=== PATIENT | female | born 1970 | race Caucasian/White ===

== ENCOUNTER → 2018-03-01 | Outpatient (CLI) | payer OTHER ==
[~2018-03-01] MED LIST: ASPI-999 PO; BARIUM SUSPENSION 105% (LIQUID POLIBAR PLUS) 240 ML/DOSE PO ONE; BARIUM SUSPENSION 60% (LIQUID EZ PAQUE) 240 ML DOSE PO ONE; CHOL200025 PO; METO-387 PO; UBID100C44 PO; [UNRECOGNIZED DRUG - OTHER] TOP
--- NOTE | 2018-03-01 10:08 | Diagnostic Imaging Report ---
INDICATION: Preop for gastric surgery. FINDINGS: The patient ingested effervescent crystals as well as thin and thick barium and imaging of the esophagus, stomach and small bowel was performed. One minute and 5 seconds of fluoroscopy time was utilized. Preliminary radiograph is unremarkable. Esophagus has a smooth contour. No mass or stricture is seen. No hiatal hernia or gastroesophageal reflux was demonstrated. Stomach is normal in appearance. There is prompt emptying into small bowel. The duodenal bulb is without deformity. IMPRESSION: Unremarkable upper GI study. Dictated by: Dictated on workstation # [id number]
== END ==
LOC: RAD 08:58
PROVIDERS: ATTEND Surgery
DX: Z01.818 Encounter for other preprocedural examination (principal); K21.9 Gastro-esophageal reflux disease without esophagitis
CPT/HCPCS: 74241

== ENCOUNTER 2018-05-03 09:40 | Inpatient (IN) | payer OTHER ==
[~2018-05-03] VITALS: Ht 167.6 cm; Wt 127.9 kg
[~2018-05-03 09:40] MED LIST changes: +ASCO10006 PO; -BARIUM SUSPENSION 105% (LIQUID POLIBAR PLUS) 240 ML/DOSE PO ONE; -BARIUM SUSPENSION 60% (LIQUID EZ PAQUE) 240 ML DOSE PO ONE; +CA C1TAB80 PO; +LEVO88TA54 PO; +PEDI1TAB46 PO; +VITA600C3 PO
[2018-05-03 12:13] VITALS: BP 138/92
[2018-05-03] MEDS: LACTATED RINGERS 1,000 ML IV PRN ×3 (12:20→16:43)
[2018-05-03] MEDS ORDERED: ceFAZolin 1,000 MG (ANCEF) VIAL ONE (12:28)
[2018-05-03] MEDS ORDERED: NS (IVPB) 50 ML ONE (12:28)
[2018-05-03] MEDS ORDERED: ceFAZolin INJECTION 1,000 MG in NS (IVPB) 50 ML IV ONE (12:30)
--- NOTE | 2018-05-03 12:39 | Progress Note-Pre Operative ---
Pre-Operative Progress Note H&P Reviewed The H&P was reviewed, patient examined and no changes noted. Date Seen by Provider: May 03, 2018 Time Seen by Provider: 12:00 Date H&P Reviewed: May 03, 2018 Time H&P Reviewed: 12:00 Pre-Operative Diagnosis: morbid obesity, HTN DEWAYNE SERRANO MD May 03, 2018 12:39 pm
[2018-05-03] MEDS ORDERED: BUP/EPI 0.5% 1:200,000 (SENSORCAINE) 30 ML VIAL ONE (13:27)
[2018-05-03] MEDS ORDERED: ceFAZolin 2 GM IV Premixed 50 ML IV ONE (13:30)
[2018-05-03] MEDS ORDERED: fentaNYL INJECTION 250 MCG/5 ML AMP ONE (13:33)
[2018-05-03] MEDS ORDERED: MIDAZOLAM 2 MG/2 ML (VERSED) VIAL ONE (13:33)
[2018-05-03] MEDS ORDERED: proPOfol 200 MG/20 ML (DIPRIVAN) VIAL IV ONE (15:16)
[2018-05-03] MEDS ORDERED: ONDANSETRON 4 MG/2 ML (SDV) Z0FRAN ONE ×2 (15:16→15:30)
[2018-05-03] MEDS ORDERED: DEXAMETHASONE 10 MG/ML (DECADRON) 1 ML VIAL ONE (15:16)
[2018-05-03] MEDS ORDERED: LIDOCAINE PF 2% 5 ML (XYLOCAINE) VIAL ONE (15:16)
[2018-05-03] MEDS ORDERED: SEVOFLURANE (ULTANE) 15 ML INHAL SOLN ONE (15:16)
[2018-05-03] MEDS ORDERED: ROCURONIUM 10 MG/ML 5 ML SYRINGE IV ONE (15:16)
[2018-05-03] MEDS ORDERED: morphine INJ 10 MG/ML 1ML (SYR OR VIAL) ONE (15:30)
[2018-05-03] MEDS ORDERED: MEPERIDINE (DEMEROL) INJ 50 MG/ML ONE (15:30)
[2018-05-03] MEDS ORDERED: HYDROmorphone 1 MG/ML (DILAUDID) 1 ML SYRINGE ONE (15:31)
[2018-05-03] MEDS ORDERED: NS IV 1000 ML 1,000 ML IV SCH (16:03)
--- NOTE | 2018-05-03 16:03 | Progress Note-Post Operative ---
Post-Operative Progess Note Surgeon (s)/Medical Or Surgical Instrument Maker (s) Surgeon DEWAYNE SERRANO MD Medical Or Surgical Instrument Maker: yasmin hill THERMOSPRAY OPERATOR Pre-Operative Diagnosis morbid obesity, HTN Post-Operative Diagnosis same Procedure & Operative Findings Date of Procedure 05/03/18 Procedure Performed/Findings laparoscopic gastric sleeve gastrectomy Anesthesia Type GET Estimated Blood Loss Estimated blood loss (mL): minimal Specimens/Packing Specimens Removed stomach DEWAYNE SERRANO MD May 03, 2018 4:03 pm
[2018-05-03] MEDS ORDERED: diphenhydrAMINE 50 MG/ML INJ (BENADRYL) IV PRN (16:15)
[2018-05-03] MEDS ORDERED: ONDANSETRON 4 MG/2 ML (SDV) Z0FRAN IV PRN (16:15)
[2018-05-03] MEDS ORDERED: diphenhydrAMINE 50 MG/ML INJ (BENADRYL) IVP PRN (16:15)
[2018-05-03] MEDS ORDERED: RT-ALBUTEROL SULF 2.5 MG/3 ML PRE-MIX VIAL INH SCH (16:15)
[2018-05-03] MEDS ORDERED: METOCLOPRAMIDE INJ 10 MG/2 ML (REGLAN) IV PRN (16:15)
[2018-05-03] MEDS ORDERED: fentaNYL INJECTION 1,000 MCG in NS (IVPB) 80 ML IV SCH (16:15)
[2018-05-03] MEDS ORDERED: oxyCODONE 20 MG/1 ML ORAL CONC (RoxiCODONE) CHARGE PER 1 ML PO PRN (16:15)
[2018-05-03] MEDS ORDERED: NALOXONE 0.4 MG/ML 1 ML (NARCAN) VIAL IV PRN (16:15)
[2018-05-03] MEDS ORDERED: PANT40TA2 PO (16:19)
[2018-05-03] MEDS ORDERED: HYDR-34 PO (16:19)
[2018-05-03] MEDS ORDERED: ONDN4T PO (16:19)
--- NOTE | 2018-05-03 16:21 | Discharge Inst-Surgical ---
D/C Lap Instructions-ZACH New, Converted, or Re-Newed RX: RX on Chart Follow Up Appt in 2 weeks Activity as tolerated No driving for 24 hours No driving while on pain medications Incentive Spirometry use every 2 hours while awake phase 1 clear liquid diet next 2 weeks. Symptoms to Report: Fever over 101 degree F, Nausea/Vomiting Infection Signs and Symptoms to report: Increased redness, Foul odor of wound, Increased drainage Bathing instructions: May shower Operative Area Clean/Dry; Keep incision clean/dry If any problems/questions: Contact your physician or go to Emergency Room DEWAYNE SERRANO MD May 03, 2018 4:21 pm
[2018-05-03] MEDS ORDERED: HYDROmorphone 1 MG/ML (DILAUDID) 1 ML SYRINGE IV PRN (16:30)
[2018-05-03] MEDS ORDERED: MEPERIDINE (DEMEROL) INJ 50 MG/ML IVP PRN (16:30)
[2018-05-03] MEDS ORDERED: KETOROLAC 30 MG/ML VIAL IVP ONE (16:30)
[2018-05-03] MEDS: morphine INJ 10 MG/ML 1ML (SYR OR VIAL) IVP PRN ×3 (16:38→16:49)
[2018-05-03 17:25] VITALS: BP 131/63
[2018-05-03] MEDS ORDERED: 1/2 NS W/KCL 20 MEQ/L 1,000 ML IV ONE (17:33)
[2018-05-03] MEDS ORDERED: metroNIDAZOLE 500MG/100ML IVPB 100 ML ONE (17:48)
[2018-05-03] MEDS: metroNIDAZOLE 500MG/100ML IVPB 100 ML IV SCH ×2 (17:49→23:26)
[2018-05-03] MEDS: 1/2 NS W/KCL 20 MEQ/L 1,000 ML IV SCH ×2 (17:57→22:24)
[2018-05-03] MEDS: METOCLOPRAMIDE INJ 10 MG/2 ML (REGLAN) IVP SCH ×2 (17:58→23:26)
[2018-05-03] MEDS: ONDANSETRON 4 MG/2 ML (SDV) Z0FRAN IVP SCH ×2 (17:58→23:26)
[2018-05-03 20:21] VITALS: BP 110/82
[2018-05-03] MEDS: ENOXAPARIN 40 MG/0.4 ML (LOVENOX) SYR SC SCH (21:12)
[2018-05-03] MEDS: ceFAZolin 2 GM IV Premixed 50 ML IV SCH (21:12)
--- NOTE | 2018-05-03 22:57 | OPERATIVE REPORT ---
DATE OF SERVICE: 05/03/2018 ATTENDING PRIMARY CARE PHYSICIAN: Dr. Jordi Rowell. PREOPERATIVE DIAGNOSES: Morbid obesity, liver steatosis, anxiety, depression. POSTOPERATIVE DIAGNOSES: Morbid obesity, liver steatosis, anxiety, depression. PROCEDURE: Laparoscopic gastric sleeve resection. SURGEON: Dewayne Serrano MD. PARKS AND RECREATION MANAGER: Heath Mccann APRN. ANESTHESIA: General endotracheal. ESTIMATED BLOOD LOSS: Minimal. FINDINGS: Mild hepatomegaly, surgically absent gallbladder. No hiatal hernia. DISPOSITION: The patient tolerated the procedure well. The patient is a 47-year-old female who is in our surgical weight loss program for the laparoscopic gastric sleeve resection and meets the medical criteria for bariatric surgery. She began to gain the majority of her adult weight in her 20s after having children. She reports that she has tried a number of diet and exercise attempts as well as medications with no success. She has tried diet programs including walking, treadmill, aerobic exercise classes with no success. She has also tried diet programs including SlimFast, Weight Watchers, low calorie low carbohydrate and ketogenic diet again with no success. She did proceed with a trial of beta hCG and reports that this did not work as well. Her medical comorbidities related to her obesity include liver steatosis diagnosed by ultrasound and elevated liver function enzymes as well as anxiety and depression. The patient was brought to the operating room, laid supine on the table. After adequate IV pain and sedating medications and general endotracheal intubation, the abdomen was prepped and draped in standard surgical fashion. A 0.5% Marcaine with epinephrine was then used to anesthetize the overlying skin in the left upper abdominal quadrant. A small transverse skin incision made using a 15 blade. An 0 silk suture was applied to the medial aspect of the incision for retraction and a Veress needle inserted with low opening pressure of 0 mmHg and the abdomen was then insufflated to 15 mmHg pressure. The Veress needle removed and a 5 mm Xcel trocar placed followed by a 5 mm 45 degree angle laparoscope visualizing the peritoneal cavity. A 4-quadrant abdominal exploration was performed. There was a mild hepatomegaly. There was a surgically absent gallbladder and no hiatal hernia identified. Under direct visualization, we then proceeded to place a midabdominal left of midline 10 mm port after the skin and peritoneal lining were anesthetized using 0.5% Marcaine with epinephrine and a transverse skin incision made using a 15 blade. In a similar manner, a midabdominal right of midline 15 mm port was placed followed by a right upper abdominal quadrant 5 mm port. The epigastric region was then anesthetized and a small transverse skin incision made using 11-blade. A tract was then created through the abdominal wall layers using a trocar to a 5 mm port. Through this opening a medium sized Alberto liver retractor was placed and the left lobe of the liver retracted anteriorly and superiorly. The patient was then placed in steep reverse Trendelenburg position. We then measured the distance from the pylorus along the greater curvature of the stomach 6 cm and marked this with a marking pen. The gastrocolic ligament was then opened entering the lesser sac using the Sonicision. We then proceeded with a caudal dissection until we were approximately 2 cm below our marking. We then proceeded cephalad taking down the short gastric vessels. The connective tissue fibers of the angle of His were then taken down as well as the posterior stomach behind this region using a Sonicision as well as blunt dissection. Good hemostasis was observed. A 42-[place] bougie was then placed under direct visualization and guided into the pylorus. Using this as our guide, we then proceeded with our gastric sleeve resection starting 2 cm below our marking. We proceeded with the gastric resection using a PARAS 45 mm polyglycolic acid black load. We then proceeded with 2 60 mm black loads followed by 2 60 mm purple loads to complete our gastric sleeve resection with visualization of good hemostasis. The staple line corners were then clipped with 5 mm clips. Tisseel fibrin glue was placed on the staple line and omentum placed back over the staple line. The liver retractor and bougie were then removed. The fascia to the 10 and 15 mm port were then closed under direct visualization using a Kalin-Phill device and an 0 Vicryl suture. The abdomen was desufflated and remaining ports removed. All skin incisions were closed using 4-0 Monocryl running subcuticular sutures. Wounds were then cleaned and covered with Dermabond. The patient tolerated the procedure well. We will admit her to the floor and proceed with DVT prophylaxis with calf SCDs, early ambulation as well as Lovenox injections. We will also proceed with a SPORTS EQUIPMENT REPAIRER for pain control. Tomorrow morning, we will start a phase I clear liquid diet. Once she is tolerating clears, has good pain control with oral pain medications, ambulating well, we will discharge her home. She will be instructed to do a phase I clear liquid diet for the next 2 weeks. Job ID: [id number] DocumentID: [id number] Dictated Date: 05/03/2018 16:31:36 Cross Tie Cutter Date: 05/03/2018 22:56:24 Dictated By: DEWAYNE SERRANO MD MTDD
[2018-05-04 00:35] VITALS: BP 139/74
[2018-05-04] MEDS ORDERED: RT-ALBUTEROL SULF 2.5 MG/3 ML PRE-MIX VIAL ONE ×2 (01:58→06:43)
[2018-05-04] MEDS: 1/2 NS W/KCL 20 MEQ/L 1,000 ML IV SCH (02:43)
[2018-05-04 04:00] VITALS: BP 134/76
[2018-05-04 06:10] LABS: HEMOGLOBIN 13.8 G/DL (11.5-16.0); RED BLOOD COUNT 4.88 10^6/uL (4.35-5.85); RED CELL DISTRIBUTION WIDTH 14.7 % (10.0-14.5); WHITE BLOOD COUNT 11.2 10^3/uL (4.3-11.0)
[2018-05-04 06:30] LABS: BUN/CREATININE RATIO 7; CALCIUM 8.3 MG/DL (8.5-10.1); CARBON DIOXIDE 19 MMOL/L (21-32); CHLORIDE 103 MMOL/L (98-107); CREATININE SERUM 0.83 MG/DL (0.60-1.30); GFR ESTIMATED > 60; GLUCOSE 115 MG/DL (70-105); POTASSIUM 4.6 MMOL/L (3.6-5.0); SODIUM 134 MMOL/L (135-145)
[2018-05-04] MEDS: ceFAZolin 2 GM IV Premixed 50 ML IV SCH (06:35)
[2018-05-04] MEDS: METOCLOPRAMIDE INJ 10 MG/2 ML (REGLAN) IVP SCH (06:35)
[2018-05-04] MEDS: ONDANSETRON 4 MG/2 ML (SDV) Z0FRAN IVP SCH (06:36)
[2018-05-04] MEDS ORDERED: PANTOPRAZOLE 40 MG (PROTONIX) TAB PO SCH (07:00)
[2018-05-04] MEDS: RT-ALBUTEROL SULF 2.5 MG/3 ML PRE-MIX VIAL INH SCH ×2 (07:01→10:37)
--- NOTE | 2018-05-04 07:47 | Anesthesia-General Post-Op ---
General Patient Condition Mental Status/LOC: Same as Preop Cardiovascular: Satisfactory Nausea/Vomiting: Absent Respiratory: Satisfactory Pain: Controlled Complications: Absent Post Op Complications Complications None Follow Up Care/Instructions Patient Instructions None needed. Anesthesia/Patient Condition Patient Condition Patient is doing well, no complaints, stable vital signs, no apparent adverse anesthesia problems. No complications reported per nursing. VIANCA COY CRNA May 04, 2018 07:47
[2018-05-04 08:00] VITALS: BP 129/66
[2018-05-04] MEDS: metroNIDAZOLE 500MG/100ML IVPB 100 ML IV SCH (08:40)
[2018-05-04] MEDS: ENOXAPARIN 40 MG/0.4 ML (LOVENOX) SYR SC SCH (08:43)
[2018-05-04] MEDS ORDERED: PANTOPRAZOLE 40 MG/10 ML (PROTONIX) VIAL IV SCH (09:00)
[2018-05-04] MEDS ORDERED: SENNA W/DOCUSATE (SENOKOT S) TABLET PO SCH (09:00)
--- NOTE | 2018-05-04 11:24 | Progress Note (SOAP) ---
Subjective Date Seen by Provider: May 04, 2018 Time Seen by Provider: 10:00 Subjective/Events-last exam doing well. pain controlled with PO pain med. tolerating phase 1 clear liquids as well. ambulating well. Objective Exam Vital Signs Date Time Temp Pulse Resp B/P (MAP) Pulse Ox O2 Delivery O2 Flow Rate FiO2 05/04/18 08:00 97.9 106 16 129/66 (87) 98 OxyMask 2.00 05/04/18 07:01 96 Room Air 05/04/18 04:00 99.8 100 20 134/76 (95) 98 OxyMask 2.00 05/04/18 02:34 98 Nasal Cannula 1.00 05/04/18 00:35 99.6 98 18 139/74 (95) 98 OxyMask 2.00 05/03/18 22:32 98 Nasal Cannula 1.00 05/03/18 21:30 18 05/03/18 21:30 OxyMask 2.00 05/03/18 20:21 98.1 70 16 110/82 (91) 100 OxyMask 2.00 05/03/18 18:19 16 05/03/18 17:25 99.2 90 20 131/63 (85) 97 OxyMask 2.00 05/03/18 17:21 OxyMask 2.00 05/03/18 12:13 97.8 74 16 138/92 (107) 96 Room Air I & O 05/04/18 07:00 Intake Total 5090 ml Output Total 1220 ml Balance 3870 ml Capillary Refill : General Appearance: No Apparent Distress HEENT: PERRL/EOMI Neck: Full Range of Motion Respiratory: Chest Non Tender, Lungs Clear, Normal Breath Sounds Cardiovascular: Regular Rate, Rhythm Gastrointestinal: normal bowel sounds, soft, tenderness, other (inc clean/dry) Extremity: Normal Capillary Refill Neurologic/Psychiatric: Alert, Oriented x3 Skin: Normal Color Lymphatic: No Adenopathy Results Lab Laboratory Tests 05/03/18 12:00: Urine Test NEGATIVE 05/04/18 05:45: White Blood Count 11.2H, Red Blood Count 4.88, Hemoglobin 13.8, Hematocrit 42, Mean Corpuscular Volume 86, Mean Corpuscular Hemoglobin 28, Mean Corpuscular Hemoglobin Concent 33, Red Cell Distribution Width 14.7H, Platelet Count 201, Mean Platelet Volume 10.0, Sodium Level 134L, Potassium Level 4.6, Chloride Level 103, Carbon Dioxide Level 19L, Anion Gap 12, Blood Urea Nitrogen 6L, Creatinine 0.83, Estimat Glomerular Filtration Rate > 60, BUN/Creatinine Ratio 7 , Glucose Level 115H, Calcium Level 8.3L Assessment/Plan Assessment/Plan Assess & Plan/Chief Complaint s/p lap gastric sleeve resection. continue ambulation. continue phase 1 clear liquid diet for 2 weeks. home soon. Clinical Quality Measures DVT/VTE Risk/Contraindication: Risk Factor Score Per Nursin RFS Level Per Nursing on Admit: 4+=Very High DEWAYNE SERRANO MD May 04, 2018 11:24 am
[2018-05-04] MEDS ORDERED: ONDANSETRON 4 MG/2 ML (SDV) Z0FRAN IVP PRN (16:15)
[2018-05-04] MEDS ORDERED: METOCLOPRAMIDE INJ 10 MG/2 ML (REGLAN) IVP PRN (16:15)
[2018-05-05] MEDS ORDERED: RT-ALBUTEROL SULF 2.5 MG/3 ML PRE-MIX VIAL INH SCH (02:00)
== END 2018-05-04 13:35 | disposition home or self-care (01) | DRG 621 ==
LOC: EDSTATUS 10:15 → 4TH 11:58 → SDC 11:58 → 4TH 17:21 → SDC 17:21 → 4TH 05-04 13:35
PROVIDERS: ADMIT Surgery; ATTEND Surgery
PROC: 0DB64Z3 Excision of Stomach, Percutaneous Endoscopic Approach, Vertical (ICD-10-PCS; principal; 2018-05-03 14:07)
DX: E66.01 Morbid (severe) obesity due to excess calories (principal); Z68.42 Body mass index [BMI] 45.0-49.9, adult; K76.0 Fatty (change of) liver, not elsewhere classified; E03.9 Hypothyroidism, unspecified; R73.03 Prediabetes; G47.33 Obstructive sleep apnea (adult) (pediatric); I49.3 Ventricular premature depolarization; F41.9 Anxiety disorder, unspecified; F32.9 Major depressive disorder, single episode, unspecified; Z79.899 Other long term (current) drug therapy
CPT/HCPCS: 36415; 80048; 84703; 85027; 87081; 94640; 94664; 94760

== ENCOUNTER → 2018-08-31 | Outpatient (CLI) | payer OTHER ==
[~2018-08-31] MED LIST changes: +HYDR-34 PO; +ONDN4T PO; +PANT40TA2 PO
[2018-08-31 09:55] LABS: BASOPHILS % (AUTO) 0 % (0-10); EOSINOPHILS # (AUTO) 0.1 10^3/uL (0.0-0.3); EOSINOPHILS % (AUTO) 0 % (0-10); HEMATOCRIT 45 % (35-52); HEMOGLOBIN 14.7 G/DL (11.5-16.0); LYMPHOCYTES # (AUTO) 3.2 X 10^3 (1.0-4.0); LYMPHOCYTES % (AUTO) 27 % (12-44); MEAN CORPUSCULAR HEMOGLOBIN 29 PG (25-34); MEAN CORPUSCULAR HGB CONC 33 G/DL (32-36); MEAN CORPUSCULAR VOLUME 90 FL (80-99); MEAN PLATELET VOLUME 9.6 FL (7.4-10.4); MONOCYTES # (AUTO) 0.9 X 10^3 (0.0-1.0); MONOCYTES % (AUTO) 8 % (0-12); NEUTROPHILS # (AUTO) 7.6 X 10^3 (1.8-7.8); NEUTROPHILS % (AUTO) 65 % (42-75); PLATELET COUNT 242 10^3/uL (130-400); RED BLOOD COUNT 5.01 10^6/uL (4.35-5.85); RED CELL DISTRIBUTION WIDTH 15.3 % (10.0-14.5); WHITE BLOOD COUNT 11.8 10^3/uL (4.3-11.0)
[2018-08-31 10:19] LABS: ALANINE AMINOTRANSFERASE 24 U/L (0-55); ALBUMIN 4.3 GM/DL (3.2-4.5); ALKALINE PHOSPHATASE 55 U/L (40-136); BILIRUBIN,TOTAL 0.3 MG/DL (0.1-1.0); BUN/CREATININE RATIO 17; CALCIUM 10.2 MG/DL (8.5-10.1); CARBON DIOXIDE 20 MMOL/L (21-32); CHLORIDE 105 MMOL/L (98-107); CREATININE SERUM 0.84 MG/DL (0.60-1.30); GFR ESTIMATED > 60; GLUCOSE 87 MG/DL (70-105); MAGNESIUM 2.1 MG/DL (1.8-2.4); POTASSIUM 3.9 MMOL/L (3.6-5.0); SODIUM 139 MMOL/L (135-145); TOTAL PROTEIN 7.7 GM/DL (6.4-8.2)
[2018-08-31 10:36] LABS: ERYTHROCYTE SEDIMENTATION RATE 11 MM/HR (0-20)
== END ==
LOC: CARD 09:33
PROVIDERS: ATTEND Nurse Practitioner Family
DX: I49.3 Ventricular premature depolarization (principal); R42 Dizziness and giddiness
CPT/HCPCS: 36415; 80053; 83735; 84443; 85025; 85652; 86038; 93225; 93226

== ENCOUNTER → 2018-10-09 | Outpatient (CLI) | payer OTHER ==
[~2018-10-09] VITALS: Ht 165.1 cm; Wt 101.6 kg
[~2018-10-09] MED LIST changes: +CATHETER FLUSH 10 ML SYR IV PRN; +REGADENOSON 0.4 MG/5 ML SYR (LEXISCAN) IV ONE
[2018-10-09 09:24] VITALS: BP 136/69
[2018-10-09 09:29] VITALS: BP 125/75
[2018-10-09 09:31] VITALS: BP 126/76
--- NOTE | 2018-10-09 12:36 | STRESS TEST ---
DATE OF SERVICE: 10/09/2018 RESTING AND POST REGADENOSON TECHNETIUM-99M TETROFOSMIN SPECT CT IMAGING ORDERING PHYSICIAN: Dr. Cerda. PRIMARY CARE PHYSICIAN: Dr. Rowell. CLINICAL DIAGNOSES: Palpitations, frequent premature ventricular contractions, near syncope. Baseline images were carried out after injection of 10.41 mCi of technetium-99m Tetrofosmin. This was followed by 0.4 mg of regadenoson and 29.5 mCi of technetium-99m Tetrofosmin for stress imaging. The electrocardiogram showed sinus rhythm with frequent premature ventricular contractions, mostly in a bigeminal pattern. The electrocardiogram did not change significantly with regadenoson infusion. The patient tolerated the procedure well. Review of images at rest and following stress indicates a small to moderate anteroseptal perfusion defect that appears transient. Gating could not be carried out due to frequent premature ventricular contractions. CONCLUSIONS: 1. This study is suggestive of a small to moderate amount of anteroseptal ischemia. 2. Gating could not be carried out due to frequent premature ventricular contractions. Job ID: [id number] DocumentID: [id number] Dictated Date: 10/09/2018 11:58:51 Boiler Control Room Operator Date: 10/09/2018 12:36:11 Dictated By: NIRMAL CERDA MD, MA, FACP, FACC, MTDD
== END ==
LOC: CARD 07:25
PROVIDERS: ATTEND Internal Medicine Cardiovascular Disease
DX: I49.3 Ventricular premature depolarization (principal); R00.2 Palpitations; R55 Syncope and collapse; G47.36 Sleep related hypoventilation in conditions classified elsewhere; Z86.39 Personal history of other endocrine, nutritional and metabolic disease

== ENCOUNTER 2018-11-05 05:36 | Outpatient (CLI) | payer OTHER ==
[~2018-11-05] VITALS: Ht 165.1 cm; Wt 101.6 kg
[~2018-11-05 05:36] MED LIST changes: -CATHETER FLUSH 10 ML SYR IV PRN; -REGADENOSON 0.4 MG/5 ML SYR (LEXISCAN) IV ONE
[2018-11-05] MEDS ORDERED: VITA1CAP PO (09:37)
[2018-11-05] MEDS ORDERED: CHOL200025 PO (09:37)
[2018-11-05] MEDS ORDERED: METO-387 PO (09:37)
[2018-11-05] MEDS ORDERED: DOCU100T7 PO (09:37)
[2018-11-05] MEDS ORDERED: CALC-823 PO (09:37)
[2018-11-05] MEDS ORDERED: MULT-1060 PO (09:37)
[2018-11-05] MEDS ORDERED: INUL1TAB3 PO (09:37)
[2018-11-05] MEDS ORDERED: PANT40TA3 PO (09:37)
== END 2018-11-05 10:38 | disposition home or self-care (01) ==
LOC: PREOP 05:36
PROVIDERS: ATTEND Internal Medicine Interventional Cardiology
DX: Z01.818 Encounter for other preprocedural examination (principal)

== ENCOUNTER 2018-11-12 08:43 | Day surgery (SDC) | payer OTHER ==
[~2018-11-12] VITALS: Ht 165.1 cm; Wt 101.6 kg
[2018-11-12] VITALS (14 sets, daily range): BP systolic 102–140; BP diastolic 53–72
[~2018-11-12 08:43] MED LIST changes: +CALC-823 PO; +DOCU100T7 PO; +INUL1TAB3 PO; +MULT-1060 PO; +PANT40TA3 PO; +VITA1CAP PO
--- OUTSIDE RECORDS SUMMARY | 2018-11-12 08:48 | XMS REPORT ---
Author Author DEREK HAIDER Organization [facility] Address [address] [place] [address] Care Team Providers Care Monogram Operator Name Role Phone DEREK HAIDER Unavailable PROBLEMS Unknown Problems ALLERGIES No Information ENCOUNTERS Encounter Location Date Diagnosis [facility] [address] [facility] [id number] [address] February, No condition on [place] I Z03.89 IMMUNIZATIONS No Known Immunizations SOCIAL HISTORY Never Assessed REASON FOR VISIT Psychological evaluation for bariatric surgery. PLAN OF CARE VITAL SIGNS MEDICATIONS Unknown Medications RESULTS No Results PROCEDURES Procedure Date Ordered Result Body Site Psych diagnostic evaluation, new patient March 15, 2018 INSTRUCTIONS MEDICATIONS ADMINISTERED No Known Medications
--- OUTSIDE RECORDS SUMMARY | 2018-11-12 08:48 | XMS REPORT | Continuity of Care Document ---
Author Author [facility] Organization [facility] Address Unknown Phone Unavailable Allergies Active Description Code Type Severity Reaction Onset Reported/Identified Relationship to Patient Clinical Status Yes No Allergy Information Available [id number] Drug Allergy Unknown N/A 2015 Yes No Known Drug Allergies [id number] Drug Allergy Unknown N/A 11/05/2018 Medications There is no data. Problems Date Dx Coded Attending Type Code Diagnosis Diagnosed By 12/22/2015 WOODROW RAMÍREZ FACC, NIRMAL FACP CCDS Ot E66.9 OBESITY, UNSPECIFIED 12/22/2015 WOODROW RAMÍREZ FACC, ALI FACP CCDS Ot I49.3 VENTRICULAR PREMATURE DEPOLARIZATION 12/22/2015 WOODROW RAMÍREZ FACC, ALI FACP CCDS Ot R07.89 OTHER CHEST PAIN 12/22/2015 WOODROW RAMÍREZ FACC, ALI FACP CCDS Ot Z68.42 BODY MASS INDEX (BMI) 45.0-49.9, ADULT 12/22/2015 WOODROW RAMÍREZ FACC, ALI FACP CCDS Ot Z79.899 OTHER PHOTOVOLTAIC SUBCONTRACTOR (CURRENT) DRUG THERAPY 12/22/2015 WOODROW RAMÍREZ FACC, ALI FACP CCDS Ot Z82.49 FAMILY HX OF ISCHEM HEART DIS AND OTH DI 06/16/2016 SHAR, NILTON M PROFESSOR OF GRAPHIC DESIGN Ot G47.19 OTHER HYPERSOMNIA 06/16/2016 SHAR, NILTON M PROFESSOR OF GRAPHIC DESIGN Ot R06.83 SNORING 06/17/2016 SHAR, NILTON M PROFESSOR OF GRAPHIC DESIGN Ot G47.19 OTHER HYPERSOMNIA 06/17/2016 SHAR, NILTON M PROFESSOR OF GRAPHIC DESIGN Ot R06.83 SNORING 03/02/2018 DEWAYNE SERRANO MD, Ot K21.9 GASTRO-ESOPHAGEAL REFLUX DISEASE WITHOUT 03/02/2018 DEWAYNE SERRANO MD Ot Z01.818 ENCOUNTER FOR OTHER PREPROCEDURAL EXAMIN 04/25/2018 DEWAYNE SERRANO MD, Ot K21.9 GASTRO-ESOPHAGEAL REFLUX DISEASE WITHOUT 04/25/2018 DEWAYNE SERRANO MD, Ot Z01.818 ENCOUNTER FOR OTHER PREPROCEDURAL EXAMIN 04/26/2018 DEWAYNE SERRANO MD, Ot E66.01 MORBID (SEVERE) OBESITY DUE TO EXCESS CA 04/26/2018 DEWAYNE SERRANO MD, Ot Z01.812 ENCOUNTER FOR PREPROCEDURAL LABORATORY E 04/26/2018 DEWAYNE SERRANO MD, Ot Z11.2 ENCOUNTER FOR SCREENING FOR OTHER BACTER 04/26/2018 DEWAYNE SERRANO MD, Ot Z68.42 BODY MASS INDEX (BMI) 45.0-49.9, ADULT 05/04/2018 DEWAYNE SERRANO MD, Ot E03.9 HYPOTHYROIDISM, UNSPECIFIED 05/04/2018 DEWAYNE SERRANO MD, Ot E66.01 MORBID (SEVERE) OBESITY DUE TO EXCESS CA 05/04/2018 DEWAYNE SERRANO MD, Ot F32.9 MAJOR DEPRESSIVE DISORDER, SINGLE EPISOD 05/04/2018 DEWAYNE SERRANO MD, Ot F41.9 ANXIETY DISORDER, UNSPECIFIED 05/04/2018 DEWAYNE SERRANO MD, Ot G47.33 OBSTRUCTIVE SLEEP APNEA (ADULT) (PEDIATR 05/04/2018 DEWAYNE SERRANO MD Ot I49.3 VENTRICULAR PREMATURE DEPOLARIZATION 05/04/2018 DEWAYNE SERRANO MD Ot K76.0 FATTY (CHANGE OF) LIVER, NOT ELSEWHERE C 05/04/2018 DEWAYNE SERRANO MD, Ot R73.03 PREDIABETES 05/04/2018 DEWAYNE SERRANO MD, Ot Z68.42 BODY MASS INDEX (BMI) 45.0-49.9, ADULT 05/04/2018 DEWAYNE SERRANO MD, Ot Z79.899 OTHER GROUP HOME (CURRENT) DRUG THERAPY 05/04/2018 DEWAYNE SERRANO MD, Ot E03.9 HYPOTHYROIDISM, UNSPECIFIED 05/04/2018 DEWAYNE SERRANO MD, Ot E66.01 MORBID (SEVERE) OBESITY DUE TO EXCESS CA 05/04/2018 DEWAYNE SERRANO MD, Ot F32.9 MAJOR DEPRESSIVE DISORDER, SINGLE EPISOD 05/04/2018 DEWAYNE SERRANO MD, Ot F41.9 ANXIETY DISORDER, UNSPECIFIED 05/04/2018 DEWAYNE SERRANO MD Ot G47.33 OBSTRUCTIVE SLEEP APNEA (ADULT) (PEDIATR 05/04/2018 DEWAYNE SERRANO MD, Ot I49.3 VENTRICULAR PREMATURE DEPOLARIZATION 05/04/2018 DEWAYNE SERRANO MD Ot K76.0 FATTY (CHANGE OF) LIVER, NOT ELSEWHERE C 05/04/2018 DEWAYNE SERRANO MD, Ot R73.03 PREDIABETES 05/04/2018 DEWAYNE SERRANO MD, Ot Z68.42 BODY MASS INDEX (BMI) 45.0-49.9, ADULT 05/04/2018 DEWAYNE SERRANO MD, Ot Z79.899 OTHER GROUP HOME (CURRENT) DRUG THERAPY 05/04/2018 DEWAYNE SERRANO MD, Ot E03.9 HYPOTHYROIDISM, UNSPECIFIED 05/04/2018 DEWAYNE SERRANO MD, Ot E66.01 MORBID (SEVERE) OBESITY DUE TO EXCESS CA 05/04/2018 DEWAYNE SERRANO MD, Ot F32.9 MAJOR DEPRESSIVE DISORDER, SINGLE EPISOD 05/04/2018 DEWAYNE SERRANO MD, Ot F41.9 ANXIETY DISORDER, UNSPECIFIED 05/04/2018 DEWAYNE SERRANO MD, Ot G47.33 OBSTRUCTIVE SLEEP APNEA (ADULT) (PEDIATR 05/04/2018 DEWAYNE SERRANO MD, Ot I49.3 VENTRICULAR PREMATURE DEPOLARIZATION 05/04/2018 DEWAYNE SERRANO MD, Ot K76.0 FATTY (CHANGE OF) LIVER, NOT ELSEWHERE C 05/04/2018 DEWAYNE SERRANO MD, Ot R73.03 PREDIABETES 05/04/2018 DEWAYNE SERRANO MD, Ot Z68.42 BODY MASS INDEX (BMI) 45.0-49.9, ADULT 05/04/2018 DEWAYNE SERRANO MD, Ot Z79.899 OTHER GROUP HOME (CURRENT) DRUG THERAPY 09/03/2018 LENA HOLLOWAY DRYWALL WORKER Ot I49.3 VENTRICULAR PREMATURE DEPOLARIZATION 09/03/2018 LENA HOLLOWAY DRYWALL WORKER Ot R42 DIZZINESS AND GIDDINESS 10/15/2018 WOODROW RAMÍREZ FACC, NIRMAL LAM CCDS Ot G47.36 SLEEP RELATED HYPOVENTILATION IN CONDITI 10/15/2018 WOODROW RAMÍREZ FACC, NIRMAL FACP CCDS Ot I49.3 VENTRICULAR PREMATURE DEPOLARIZATION 10/15/2018 WOODROW RAMÍREZ FACC, NIRMAL FACP CCDS Ot R00.2 PALPITATIONS 10/15/2018 WOODROW RAMÍREZ FACC, ALI FACP CCDS Ot R55 SYNCOPE AND COLLAPSE 10/15/2018 WOODROW MCCLENDONC, NIRMAL LAM CCDS Ot Z86.39 PERSONAL HISTORY OF ENDO, NUTRITIONAL AN 11/06/2018 KURT RAMÍREZ, Mary VANCE Ot Z01.818 ENCOUNTER FOR OTHER PREPROCEDURAL EXAMIN Procedures Code Description Performed By Performed On [id number] EXCISION OF STOMACH, PERCUTANEOUS ENDOSC 05/03/2018 Results Test Result Range Complete blood count (CBC) with automated white blood cell (WBC) differential - 04/25/18 10:00 Blood leukocytes automated count (number/volume) 10.3 10*3/uL 4.3-11.0 Blood erythrocytes automated count (number/volume) 5.23 10*6/uL 4.35-5.85 Venous blood hemoglobin measurement (mass/volume) 15.1 g/dL 11.5-16.0 Blood hematocrit (volume fraction) 44 % 35-52 Automated erythrocyte mean corpuscular volume 85 [foz_us] 80-99 Automated erythrocyte mean corpuscular hemoglobin (mass per erythrocyte) 29 pg 25-34 Automated erythrocyte mean corpuscular hemoglobin concentration measurement ( mass/volume) 34 g/dL 32-36 Automated erythrocyte distribution width ratio 14.4 % 10.0-14.5 Automated blood platelet count (count/volume) 246 10*3/uL 130-400 Automated blood platelet mean volume measurement 9.5 [foz_us] 7.4-10.4 Automated blood neutrophils/100 leukocytes 65 % 42-75 Automated blood lymphocytes/100 leukocytes 26 % 12-44 Blood monocytes/100 leukocytes 9 % 0-12 Automated blood eosinophils/100 leukocytes 0 % 0-10 Automated blood basophils/100 leukocytes 0 % 0-10 Blood neutrophils automated count (number/volume) 6.7 10*3 1.8-7.8 Blood lymphocytes automated count (number/volume) 2.6 10*3 1.0-4.0 Blood monocytes automated count (number/volume) 0.9 10*3 0.0-1.0 Automated eosinophil count 0.0 10*3/uL 0.0-0.3 Automated blood basophil count (count/volume) 0.0 10*3/uL 0.0-0.1 Methicillin resistant Staphylococcus aureus (MRSA) screening culture - 10:00 Methicillin resistant Staphylococcus aureus (MRSA) screening culture NEG NRG Urine beta human chorionic gonadotropin (hCG) measurement - 05/03/18 12:00 Urine beta human chorionic gonadotropin (hCG) measurement NEGATIVE NEGATIVE Methicillin resistant Staphylococcus aureus (MRSA) screening culture - 12:05 Methicillin resistant Staphylococcus aureus (MRSA) screening culture NEG NRG Automated blood complete blood count (hemogram) panel - 05/04/18 05:45 Blood leukocytes automated count (number/volume) 11.2 10*3/uL 4.3-11.0 Blood erythrocytes automated count (number/volume) 4.88 10*6/uL 4.35-5.85 Venous blood hemoglobin measurement (mass/volume) 13.8 g/dL 11.5-16.0 Blood hematocrit (volume fraction) 42 % 35-52 Automated erythrocyte mean corpuscular volume 86 [foz_us] 80-99 Automated erythrocyte mean corpuscular hemoglobin (mass per erythrocyte) 28 pg 25-34 Automated erythrocyte mean corpuscular hemoglobin concentration measurement ( mass/volume) 33 g/dL 32-36 Automated erythrocyte distribution width ratio 14.7 % 10.0-14.5 Automated blood platelet count (count/volume) 201 10*3/uL 130-400 Automated blood platelet mean volume measurement 10.0 [foz_us] 7.4-10.4 Whole blood basic metabolic panel - 05/04/18 05:45 Serum or plasma sodium measurement (moles/volume) 134 mmol/L 135-145 Serum or plasma potassium measurement (moles/volume) 4.6 mmol/L 3.6-5.0 Serum or plasma chloride measurement (moles/volume) 103 mmol/L 98-107 Carbon dioxide 19 mmol/L 21-32 Serum or plasma anion gap determination (moles/volume) 12 mmol/L 5-14 Serum or plasma urea nitrogen measurement (mass/volume) 6 mg/dL 7-18 Serum or plasma creatinine measurement (mass/volume) 0.83 mg/dL 0.60-1.30 Serum or plasma urea nitrogen/creatinine mass ratio 7 NRG Serum or plasma creatinine measurement with calculation of estimated glomerular filtration rate > NRG Serum or plasma glucose measurement (mass/volume) 115 mg/dL 70-105 Serum or plasma calcium measurement (mass/volume) 8.3 mg/dL 8.5-10.1 Encounters ACCT No. Visit Date/Time Discharge Status Pt. Type Provider Facility Loc./Unit Complaint [id number] 11/05/2018 05:36:00 11/05/2018 10:38:00 DIS Outpatient Mary HICKS MD [facility] PREOP RIGHT EP STUDY [id number] 10/09/2018 07:25:00 10/09/2018 23:59:59 CLS Outpatient WOODROW RAMÍREZ FACOphelia, NIRMAL LAM CCDS [facility] CARD FREQUENT PVCS ,PALPITATIONS,NEAR SYNCOPE [id number] 10/04/2018 12:52:00 10/04/2018 23:59:59 CLS Preadmit BAIMAERICLENA L DRYWALL WORKER [facility] CARD FREQUENT PVCS, PALPITATIONS,NEAR SYNCOPE [id number] 08/31/2018 09:33:00 08/31/2018 23:59:59 CLS Outpatient AMIE LENA L DRYWALL WORKER [facility] CARD FREQUENT PVC'S [id number] 05/03/2018 11:58:00 05/04/2018 13:35:00 DIS Outpatient DEWAYNE SERRANO MD [facility] 4TH MORBID OBESITY [id number] 04/25/2018 09:34:00 04/25/2018 10:10:00 DIS Outpatient DEWAYNE SERRANO MD [facility] PREOP MORBID OBESITY [id number] 03/01/2018 08:58:00 03/01/2018 23:59:59 CLS Outpatient DEWAYNE SERRANO MD [facility] RAD REFLUX [id number] 06/16/2016 08:11:00 06/16/2016 08:25:00 DIS Outpatient NILTON MYLES APRN [facility] SLEEP SNORING,ARRHYTHMIAS, INSOMNIA [id number] 12/22/2015 10:43:00 12/22/2015 17:25:00 DIS Outpatient WOODROW RAMÍREZ FACC, NIRMAL LAM CCDS [facility] CATH CHEST PAIN [id number] 11/12/2018 11:00:00 PEN Preadmit Mary HICKS MD [facility] CATH PVCs
[2018-11-12] MEDS ORDERED: NS IV 1000 ML 1,000 ML IV SCH (09:04)
[2018-11-12] MEDS ORDERED: HEParin (CATH LAB) 2,000 ML IV ONE (09:14)
[2018-11-12] MEDS ORDERED: LIDOCAINE 1% INJ 20 ML 20 ML VIAL ONE ×2 (09:14→11:08)
[2018-11-12] MEDS ORDERED: NS IV 1000 ML 1,000 ML ONE (09:14)
[2018-11-12] MEDS ORDERED: ISOPROTERENOL 0.2 MG/100 ML D5W IV ONE (09:15)
--- NOTE | 2018-11-12 09:32 | NUR ---
Spoke to patient she did not bring medications in or a list. She stated what she took and how she took them. Also the last time she had taken her medications.
[2018-11-12 09:46] LABS: HEMOGLOBIN 14.9 G/DL (11.5-16.0); MEAN PLATELET VOLUME 9.7 FL (7.4-10.4); RED BLOOD COUNT 4.92 10^6/uL (4.35-5.85); RED CELL DISTRIBUTION WIDTH 14.1 % (10.0-14.5); WHITE BLOOD COUNT 10.3 10^3/uL (4.3-11.0)
[2018-11-12 10:01] LABS: INR 0.9 (0.8-1.4); PROTHROMBIN TIME PATIENT 12.5 SEC (12.2-14.7)
[2018-11-12 10:10] LABS: ALANINE AMINOTRANSFERASE 17 U/L (0-55); ALBUMIN 4.2 GM/DL (3.2-4.5); ALKALINE PHOSPHATASE 56 U/L (40-136); BILIRUBIN,TOTAL 0.5 MG/DL (0.1-1.0); BUN/CREATININE RATIO 15; CALCIUM 9.3 MG/DL (8.5-10.1); CARBON DIOXIDE 19 MMOL/L (21-32); CHLORIDE 108 MMOL/L (98-107); CHOLESTEROL 152 MG/DL (< 200); CREATININE SERUM 0.85 MG/DL (0.60-1.30); GFR ESTIMATED > 60; GLUCOSE 90 MG/DL (70-105); HDL CHOLESTEROL 49 MG/DL (40-60); POTASSIUM 3.8 MMOL/L (3.6-5.0); SODIUM 140 MMOL/L (135-145); TOTAL PROTEIN 7.6 GM/DL (6.4-8.2); TRIGLYCERIDES 99 MG/DL (<150); VLDL CHOLESTEROL 20 MG/DL (5-40)
[2018-11-12] MEDS ORDERED: MIDAZOLAM 2 MG/2 ML (VERSED) VIAL ONE (11:08)
[2018-11-12] MEDS ORDERED: proPOfol 200 MG/20 ML (DIPRIVAN) VIAL IV ONE (11:08)
[2018-11-12] MEDS ORDERED: ONDANSETRON 4 MG/2 ML (SDV) Z0FRAN ONE ×2 (11:09→15:41)
[2018-11-12] MEDS ORDERED: fentaNYL INJECTION 100 MCG/2 ML AMP ONE (11:09)
--- NOTE | 2018-11-12 15:39 | Cardiac Procedure Note-CS/ASA ---
Pre-Procedure Note Pre-Op Procedure Note H&P Reviewed The H&P was reviewed, patient examined and no changes noted. Date H&P Reviewed: Nov 12, 2018 Time H&P Reviewed: 11:00 Conscious Sedation Pre-Proced Time 11:00 ASA Score 3 For ASA 3 and 4: Consider anesthesia and medical clearance. Also, for patients with a history of failed moderate sedation consider anesthesia. Airway Lungs Heart ASA score ASA 1: a normal healthy patient ASA 2: a patient with a mild systemic disease (mid diabetes, controlled hypertension, obesity ASA 3: a patient with a severe systemic disease that limits activity (angina , COPD, prior Myocardial infarction) ASA 4: a patient with an incapacitating disease that is a constant threat to life (CHF, renal failure) ASA 5: a moribund patient not expected to survive 24 hrs. (ruptured aneurysm) ASA 6: a declared brain patient whose organs are being harvested. For emergent operations, add the letter E after the classification Mallampati Classification Grade 1 Sedation Plan Analgesia, Amnesia, Plan communicated to team members, Discussed options with patient/fam, Discussed risks with patient/fam The patient is an appropriate candidate to undergo the planned procedure, sedation, and anesthesia. The patient immediately re-assessed prior to indication. Mary HICKS MD Nov 12, 2018 15:39
--- NOTE | 2018-11-12 15:39 | Electrophysiology Procedure ---
EP Procedure DATE OF SERVICE:11/12/18 REFERRING YARDER ENGINEER: Dr. Danitza Cerda CARDIAC CONTRACTOR BUYER: Marva Meraz MD, [facility], [facility]. INDICATION: Symptomatic PVCs. PREOPERATIVE DIAGNOSIS: Symptomatic PVCs. POSTOPERATIVE DIAGNOSES: PVC ablation. HISTORY: This is a 47 year old lady with frequent symptomatic PVCs. Outflow tract morphology. The patient is planned for comprehensive EP study and ablation. PROCEDURE PERFORMED: 1. Comprehensive EP study with induction. 2. Fluoroscopy. 3. CS pacing. 4. Drug infusion. 5. Ablation of RV PVCs. 6. Comprehensive 3D mapping with the carto system. 7. Intracardiac Echo/Ultrasound. COMPLICATION: None. ESTIMATED BLOOD LOSS: 10 mL. CONTRAST USED: None. FLUOROSCOPY TIME: 6.4 minutes. FLUOROSCOPY DOSE: 53 mgy. SPECIMENS: None. ANESTHESIA: Done by our anesthesia colleagues. ANTICOAGULATION: None PROCEDURE IN DETAIL: After informed consent was taken, the patient was brought to the EP lab. Anesthesia was provided by our anesthesia colleagues. The patient was draped and prepped in the usual sterile fashion. The patient presented to the EP lab in sinus rhythm. Access was gained in the right femoral vein with a 6-Zambian and an 8-Zambian sheath. Left access in left femoral vein was gained with 8.5 Zambian, 5-Zambian and 6-Zambian sheath respectively. High right atrial catheter was an ablation catheter, right ventricular catheter was placed, his catheter and the CS catheter were also placed. Intracardiac ultrasound/Echo catheter was also placed. Intracardiac Echocardiogram was used to create a FAM of the RV, RVOT, LV, LVOT, LA and Aortic valve. A comprehensive EP study was done including a CS pacing. A 3D electroanatomic mapping was donewith the carto system. Clinical PVCs were recorded and high density mapping done in the RVOT region. Pace mapping was also done in the RVOT. Earliest focus was 44ms before onset of surface PVC. Pace mapping revealed 12/ 12 and 98% correlation. Ablation was therefore performed. On ultrasound, this region was in the anterior RVOT and away from the septum. The outline of the RV, LA and aorta was created by Cartosound to make sure we are not close to any vital structure. Initial ablations resulted in ventricular ectopy and then absence of clinical PVC. However, after few minutes, the clinical PVC appeared again. We performed mapping in RVOT just adjacent to the previous ablation points. We found a few foci with 20-34 ms earlier than onset of surface PVC. 12/12 and 98% correlation on 3D mapping. Further ablations were done. Isuprel was given during the procedure as well. We still observed some PVCs at the end of the procedure. Some were very similar to the clinical PVCs as well. The patienttolerated the procedurewell and did not have any complication. The patientleft the lab in sinus rhythm. Total ablation time was 643 seconds. MEASUREMENTS/EP STUDY: AV Wenckebach 450 ms, Retrograde Wenckebach 480 ms, AH interval 51 ms, HV interval 46 ms, Ventricular ERP 600/440 ms. Atrial ERP was 600/270 ms. PLAN: The patient will be observed overnight and will be discharged home tomorrow with precise followup instructions. I discussed with the family and shared the fact that few PVCs were noted at the end of the procedure. It may be possible that the focus of clinical PVC is epicardial. We will follow the patient clinically to see if ablation is able to reduce the burden of clinical PVCs. Marva Meraz MD, RS, CCDS Cardiac Electrophysiology Mary MERAZ MD Nov 12, 2018 15:39
[2018-11-12] MEDS ORDERED: morphine INJ 10 MG/ML 1ML (SYR OR VIAL) ONE (15:41)
[2018-11-12] MEDS ORDERED: PATIENT MAY USE OWN MEDS, ALL PO SCH (15:45)
[2018-11-12] MEDS ORDERED: LACTATED RINGERS 1,000 ML IV ONE (15:54)
[2018-11-12] MEDS ORDERED: MEPERIDINE (DEMEROL) INJ 50 MG/ML IVP ONE (16:45)
[2018-11-12] MEDS ORDERED: PROMETHAZINE INJ 25 MG/ML (PHENERGAN) AMP IVP ONE (16:45)
[2018-11-12] MEDS ORDERED: morphine INJ 10 MG/ML 1ML (SYR OR VIAL) IVP ONE (16:45)
[2018-11-12] MEDS ORDERED: ONDANSETRON 4 MG/2 ML (SDV) Z0FRAN IVP PRN (16:45)
[2018-11-12] MEDS: NS IV 1000 ML 1,000 ML IV SCH ×2 (18:52→19:19)
[2018-11-13] VITALS: BP 113/65
[2018-11-13 04:00] VITALS: BP 110/63
[2018-11-13 04:48] LABS: HEMOGLOBIN 11.4 G/DL (11.5-16.0); MEAN PLATELET VOLUME 10.3 FL (7.4-10.4); RED BLOOD COUNT 3.84 10^6/uL (4.35-5.85); RED CELL DISTRIBUTION WIDTH 13.8 % (10.0-14.5); WHITE BLOOD COUNT 11.4 10^3/uL (4.3-11.0)
[2018-11-13 05:02] LABS: BUN/CREATININE RATIO 14; CALCIUM 8.1 MG/DL (8.5-10.1); CARBON DIOXIDE 19 MMOL/L (21-32); CHLORIDE 110 MMOL/L (98-107); CREATININE SERUM 0.72 MG/DL (0.60-1.30); GFR ESTIMATED > 60; GLUCOSE 78 MG/DL (70-105); POTASSIUM 3.8 MMOL/L (3.6-5.0); SODIUM 138 MMOL/L (135-145)
--- NOTE | 2018-11-13 08:21 | Anesthesia-General Post-Op ---
General Patient Condition Mental Status/LOC: Same as Preop Cardiovascular: Satisfactory Nausea/Vomiting: Absent Respiratory: Satisfactory Pain: Controlled Complications: Absent Post Op Complications Complications None Follow Up Care/Instructions Patient Instructions None needed. Anesthesia/Patient Condition Patient Condition Patient is doing well, no complaints, stable vital signs, no apparent adverse anesthesia problems. No complications reported per nursing. D/C home per [facility] Criteria: No KITA LYNN CRNA Nov 13, 2018 08:21
--- NOTE | 2018-11-13 09:05 | Cardiology Discharge Summary ---
Diagnosis/Chief Complaint Date of Admission 11/12/2018 Date of Discharge 11/13/2018 Admission Diagnosis PVCs Final/Discharge Diagnosis Status post PVC ablation Chief Complaint/HPI Chief Complaint/HPI This is a 47 year old lady with frequent symptomatic PVCs. Outflow tract morphology. The patient is planned for comprehensive EP study and ablation. Discharge Summary Procedures Status post PVC ablation Discharge Physical Examination Normal cardiovascular and respiratory examination. Normal bilateral groin examination. Hospital Course Unremarkable. Pending Labs Discussion & Recommendations Discussion Discussed at length with the patient and family. Clinical PVCs reappeared even after ablation. Likely epicardial in origin. I also discuss with Dr. Cerda. Patient will continue beta blockers and will do a Holter monitor in 2 weeks to check burden off PVCs. Discharge took over 30 minutes to complete. Follow up appt.: Dr. Meraz and Dr. Cerda. Dicharge Diet: No Restrictions Activity as Tolerated: Yes Home Medications Reviewed patient Home Medication Reconciliation performed by pharmacy medication reconciliations orthodontic technician assistant and/or nursing. Patients Allergies have been reviewed. Discharge Home Medications: Reviewed and agree with Discharge Medication list on patient's Discharge Instruction sheet Condition at discharge Stable. Instructions to patient/family Discussed with the family and patient. Mary MERAZ MD Nov 13, 2018 09:05
[2018-11-13] MEDS ORDERED: METO-387 PO (09:06)
--- NOTE | 2018-11-13 09:07 | Discharge Inst-Post CATH ---
Discharge Inst-CATH/EP Post Cardiac Cath/EP D/C Inst Follow Up/Plan Dr Meraz and Dr Cerda CARDIAC CATH DISCHARGE INSTRUCTIONS *Hold Metformin for 48 hours post heart cath. ACTIVITY * Go Home directly and rest. * Limit activity of the leg (or wrist if it was used) for 7 days including aerobics, swimming, jogging, bicycling, etc. * Restrict stair-climbing for 7 days if possible, if not, climb up with your non -cath leg, then bring together on the same step. * Avoid lifting, pushing, pulling or excessive movement of the affected extremity for 7 days. * Customary sexual activity may be resumed after 2 days-use caution not to use a position that strains or causes pain to the affected extremity. * No driving for 24 hours. * NO SMOKING. * Avoid straining for bowel movements for 7 days. * Gentle walking on level ground is allowed. * Returning to work will depend on the type of procedure and the results. Your doctor will discuss this with you. CALL YOUR DOCTOR FOR ANY OF THE FOLLOWING: *If bleeding from the puncture site occurs- Apply gentle pressure to site with clean cloth and call your doctor or EMS. * If a knot or lump forms under the skin, increases in size, or causes pain. * If bruising appears to be worsening or moving further down your leg instead of disappearing. * Temperature above 101 F. CARE OF YOUR GROIN INCISION; * Bruising or purple discoloration of the skin near the puncture site is common. * You may shower only, no bathtub bathing for 5 days. Be careful to avoid slipping as your leg may feel stiff. * If a closure device was used on your femoral artery, please see the attached guide regarding care of the device and your leg. * Leave the dressing on, until removed by office staff. CARE OF YOUR WRIST INCISION; * Bruising or purple discoloration of the skin near the puncture site is common. * You may shower. * DO NOT submerge wrist. * Leave dressing on, until removed by office staff.. Mary MERAZ MD Nov 13, 2018 09:07
[2018-11-13 09:32] VITALS: BP 117/57
[2018-11-13 10:00] VITALS: BP 117/57
== END 2018-11-13 10:52 | disposition home or self-care (01) ==
LOC: CATH 08:43 → ICU 16:32 → CATH 11-13 10:52
PROVIDERS: ATTEND Internal Medicine Interventional Cardiology
DX: I49.3 Ventricular premature depolarization (principal); E03.9 Hypothyroidism, unspecified; E66.09 Other obesity due to excess calories; Z79.899 Other long term (current) drug therapy; Z68.37 Body mass index [BMI] 37.0-37.9, adult
CPT/HCPCS: 36415; 80048; 80053; 80061; 84703; 85027; 85610; 85730; 87081

== ENCOUNTER → 2018-11-13 | Outpatient (CLI) | payer OTHER | LOC: CARD 10:05 | PROVIDERS: ATTEND Nurse Practitioner Family | DX: I49.3 Ventricular premature depolarization (principal); R00.2 Palpitations; R55 Syncope and collapse; R09.02 Hypoxemia; I34.0 Nonrheumatic mitral (valve) insufficiency; Z86.39 Personal history of other endocrine, nutritional and metabolic disease | CPT/HCPCS: 93306 ==

== ENCOUNTER → 2018-11-16 | Outpatient (CLI) | payer OTHER | LOC: LAB 13:41 | PROVIDERS: ATTEND Nurse Practitioner Family | DX: R53.1 Weakness (principal); R53.83 Other fatigue | CPT/HCPCS: 36415; 82607; 84425 ==

== ENCOUNTER → 2018-11-21 | Outpatient (CLI) | payer OTHER | LOC: CARD 07:13 | PROVIDERS: ATTEND Internal Medicine Interventional Cardiology | DX: I49.3 Ventricular premature depolarization (principal) | CPT/HCPCS: 93225; 93226 ==

== ENCOUNTER 2018-11-27 06:54 | Day surgery (SDC) | payer OTHER ==
[2018-11-27] VITALS (11 sets, daily range): BP systolic 96–112; BP diastolic 60–75
[~2018-11-27] VITALS: Ht 167.6 cm; Wt 99.8 kg
[2018-11-27] MEDS ORDERED: LIDOCAINE 1% INJ 20 ML 20 ML VIAL ONE (06:55)
[2018-11-27] MEDS ORDERED: NS IV 1000 ML 1,000 ML ONE (06:55)
[2018-11-27] MEDS ORDERED: HEParin (CATH LAB) 2,000 ML IV ONE (06:55)
--- OUTSIDE RECORDS SUMMARY | 2018-11-27 06:59 | XMS REPORT | Continuity of Care Document ---
Author Author [facility] Organization [facility] Address Unknown Phone Unavailable Allergies Active Description Code Type Severity Reaction Onset Reported/Identified Relationship to Patient Clinical Status Yes No Allergy Information Available [id number] Drug Allergy Unknown N/A 2015 Yes No Known Drug Allergies [id number] Drug Allergy Unknown N/A 11/05/2018 Medications There [...] FACC, ALI FACP CCDS Ot Z79.899 OTHER BREAKER OILER (CURRENT) DRUG THERAPY 12/22/2015 WOODROW RAMÍREZ FACC, ALI FACP CCDS Ot Z82.49 FAMILY HX OF ISCHEM HEART DIS AND OTH DI 06/16/2016 SHAR, NILTON M ENVIRONMENTAL SPECIALIST Ot G47.19 OTHER HYPERSOMNIA 06/16/2016 SHAR, NILTON M ENVIRONMENTAL SPECIALIST Ot R06.83 SNORING 06/17/2016 SHAR, NILTON M ENVIRONMENTAL SPECIALIST Ot G47.19 OTHER HYPERSOMNIA 06/17/2016 SHAR, NILTON M ENVIRONMENTAL SPECIALIST Ot R06.83 SNORING 03/02/2018 DEWAYNE SERRANO MD, [...] 05/04/2018 DEWAYNE SERRANO MD, Ot Z79.899 OTHER PRISON (CURRENT) DRUG THERAPY 05/04/2018 DEWAYNE SERRANO MD, [...] 05/04/2018 DEWAYNE SERRANO MD, Ot Z79.899 OTHER PRISON (CURRENT) DRUG THERAPY 05/04/2018 DEWAYNE SERRANO MD, Ot E03.9 HYPOTHYROIDISM, UNSPECIFIED 05/04/2018 DEWAYNE SRERANO MD, Ot E66.01 MORBID (SEVERE) OBESITY DUE [...] 05/04/2018 DEWAYNE SERRANO MD, Ot Z79.899 OTHER PRISON (CURRENT) DRUG THERAPY 09/03/2018 LENA HOLLOWAY LOCKSTITCH COLLAR SETTER Ot I49.3 VENTRICULAR PREMATURE DEPOLARIZATION 09/03/2018 LENA HOLLOWAY LOCKSTITCH COLLAR SETTER Ot R42 DIZZINESS AND GIDDINESS 10/15/2018 WOODROW RAMÍREZ FACC, NIRMAL LAM CCDS Ot G47.36 SLEEP RELATED HYPOVENTILATION IN CONDITI 10/15/2018 WOODROW RAMÍREZ FACC, NIRMAL FACP CCDS Ot I49.3 VENTRICULAR PREMATURE DEPOLARIZATION 10/15/2018 WOODROW RAMÍREZ FACC, NIRMAL FACP CCDS Ot R00.2 PALPITATIONS 10/15/2018 WOODROW RAMÍREZ FACC, ALI FACP CCDS Ot R55 SYNCOPE AND COLLAPSE 10/15/2018 WOODROW MCCLENDON, NIRMAL LAM CCDS Ot Z86.39 PERSONAL HISTORY OF ENDO, NUTRITIONAL AN 11/06/2018 Mary HICKS MD Ot Z01.818 ENCOUNTER FOR OTHER PREPROCEDURAL EXAMIN 11/14/2018 Mary HICKS MD, Ot E03.9 HYPOTHYROIDISM, UNSPECIFIED 11/14/2018 Mary HICKS MD Ot E66.09 OTHER OBESITY DUE TO EXCESS CALORIES 11/14/2018 Mary HICKS MD, Ot I49.3 VENTRICULAR PREMATURE DEPOLARIZATION 11/14/2018 Mary HICKS MD, Ot Z68.37 BODY MASS INDEX (BMI) 37.0-37.9, ADULT 11/14/2018 Mary HICKS MD, Ot Z79.899 OTHER PRISON (CURRENT) DRUG THERAPY 11/18/2018 Mary HICKS MD, Ot E03.9 HYPOTHYROIDISM, UNSPECIFIED 11/18/2018 Mary HICKS MD Ot E66.09 OTHER OBESITY DUE TO EXCESS CALORIES 11/18/2018 Mary HICKS MD, Ot I49.3 VENTRICULAR PREMATURE DEPOLARIZATION 11/18/2018 Mary HICKS MD Ot Z68.37 BODY MASS INDEX (BMI) 37.0-37.9, ADULT 11/18/2018 Mary HICKS MD Ot Z79.899 OTHER BREAKER OILER (CURRENT) DRUG THERAPY 11/22/2018 Mary HICKS MD, Ot E03.9 HYPOTHYROIDISM, UNSPECIFIED 11/22/2018 Mary HICKS MD Ot E66.09 OTHER OBESITY DUE TO EXCESS CALORIES 11/22/2018 Mary HICKS MD, Ot I49.3 VENTRICULAR PREMATURE DEPOLARIZATION 11/22/2018 Mary HICKS MD, Ot Z68.37 BODY MASS INDEX (BMI) 37.0-37.9, ADULT 11/22/2018 Mary HICKS MD, Ot Z79.899 OTHER PRISON (CURRENT) DRUG THERAPY 11/23/2018 Mary HICKS MD, Ot I49.3 VENTRICULAR PREMATURE DEPOLARIZATION Procedures Code Description Performed By Performed On [id number] EXCISION OF STOMACH, PERCUTANEOUS ENDOSC 05/03/2018 Results [...] plasma calcium measurement (mass/volume) 8.3 mg/dL 8.5-10.1 Comprehensive metabolic panel - 11/12/18 09:40 Serum or plasma sodium measurement (moles/volume) 140 mmol/L 135-145 Serum or plasma potassium measurement (moles/volume) 3.8 mmol/L 3.6-5.0 Serum or plasma chloride measurement (moles/volume) 108 mmol/L 98-107 Carbon dioxide 19 mmol/L 21-32 Serum or plasma anion gap determination (moles/volume) 13 mmol/L 5-14 Serum or plasma urea nitrogen measurement (mass/volume) 13 mg/dL 7-18 Serum or plasma creatinine measurement (mass/volume) 0.85 mg/dL 0.60-1.30 Serum or plasma urea nitrogen/creatinine mass ratio 15 NRG Serum or plasma creatinine measurement with calculation of estimated glomerular filtration rate > NRG Serum or plasma glucose measurement (mass/volume) 90 mg/dL 70-105 Serum or plasma calcium measurement (mass/volume) 9.3 mg/dL 8.5-10.1 Serum or plasma total bilirubin measurement (mass/volume) 0.5 mg/dL 0.1-1.0 Serum or plasma alkaline phosphatase measurement (enzymatic activity/volume) 56 U/L 40-136 Serum or plasma aspartate aminotransferase measurement (enzymatic activity/ volume) 20 U/L 5-34 Serum or plasma alanine aminotransferase measurement (enzymatic activity/volume ) 17 U/L 0-55 Serum or plasma protein measurement (mass/volume) 7.6 g/dL 6.4-8.2 Serum or plasma albumin measurement (mass/volume) 4.2 g/dL 3.2-4.5 CALCIUM CORRECTED 9.1 mg/dL 8.5-10.1 Lipid 1996 panel - 11/12/18 09:40 Serum or plasma triglyceride measurement (mass/volume) 99 mg/dL <150 Serum or plasma cholesterol measurement (mass/volume) 152 mg/dL < 200 Serum or plasma cholesterol in HDL measurement (mass/volume) 49 mg/ dL 40-60 Cholesterol in LDL [mass/volume] in serum or plasma by direct assay 93 mg/dL 1-129 Serum or plasma cholesterol in VLDL measurement (mass/volume) 20 mg/ dL 5-40 Methicillin resistant Staphylococcus aureus (MRSA) screening culture - 09:40 Methicillin resistant Staphylococcus aureus (MRSA) screening culture NEG NRG Automated blood complete blood count (hemogram) panel - 11/13/18 04:00 Blood leukocytes automated count (number/volume) 11.4 10*3/uL 4.3-11.0 Blood erythrocytes automated count (number/volume) 3.84 10*6/uL 4.35-5.85 Venous blood hemoglobin measurement (mass/volume) 11.4 g/dL 11.5-16.0 Blood hematocrit (volume fraction) 35 % 35-52 Automated erythrocyte mean corpuscular volume 90 [foz_us] 80-99 Automated erythrocyte mean corpuscular hemoglobin (mass per erythrocyte) 30 pg 25-34 Automated erythrocyte mean corpuscular hemoglobin concentration measurement ( mass/volume) 33 g/dL 32-36 Automated erythrocyte distribution width ratio 13.8 % 10.0-14.5 Automated blood platelet count (count/volume) 170 10*3/uL 130-400 Automated blood platelet mean volume measurement 10.3 [foz_us] 7.4-10.4 Whole blood basic metabolic panel - 11/13/18 04:00 Serum or plasma sodium measurement (moles/volume) 138 mmol/L 135-145 Serum or plasma potassium measurement (moles/volume) 3.8 mmol/L 3.6-5.0 Serum or plasma chloride measurement (moles/volume) 110 mmol/L 98-107 Carbon dioxide 19 mmol/L 21-32 Serum or plasma anion gap determination (moles/volume) 9 mmol/L 5-14 Serum or plasma urea nitrogen measurement (mass/volume) 10 mg/dL 7-18 Serum or plasma creatinine measurement (mass/volume) 0.72 mg/dL 0.60-1.30 Serum or plasma urea nitrogen/creatinine mass ratio 14 NRG Serum or plasma creatinine measurement with calculation of estimated glomerular filtration rate > NRG Serum or plasma glucose measurement (mass/volume) 78 mg/dL 70-105 Serum or plasma calcium measurement (mass/volume) 8.1 mg/dL 8.5-10.1 Serum or plasma thiamine measurement (mass/volume) - 11/16/18 13:47 Serum or plasma thiamine measurement (moles/volume) 99 % 70-180 Cyanocobalamin measurement - 11/16/18 13:47 Vitamin B12 1111 pg/mL 190-1100 Encounters ACCT No. Visit Date/Time Discharge Status Pt. Type Provider Facility Loc./Unit Complaint [id number] 11/21/2018 07:13:00 11/21/2018 23:59:59 CLS Outpatient Mary HICKS MD [facility] CARD PVCs [id number] 11/16/2018 13:41:00 11/16/2018 23:59:59 CLS Outpatient ARIAN ARGUETA APRN [facility] LAB WEAKNESS,FATIGUE [id number] 11/13/2018 10:05:00 11/13/2018 23:59:59 CLS Outpatient LENA HOLLOWAY [facility] CARD FREQUENT PVCS, PALPITATIONS,NEAR SYNCOPE [id number] 11/12/2018 08:43:00 11/13/2018 10:52:00 DIS Outpatient Mary HICKS MD [facility] CATH PVCs [id number] 11/05/2018 05:36:00 11/05/2018 10:38:00 DIS Outpatient Mary HICKS MD [facility] PREOP RIGHT EP STUDY [id number] 10/09/2018 07:25:00 10/09/2018 23:59:59 CLS Outpatient WOODROW RAMÍREZ FACC, NIRMAL LAM CCDS [facility] CARD FREQUENT PVCS ,PALPITATIONS,NEAR SYNCOPE [id number] 08/31/2018 09:33:00 08/31/2018 23:59:59 CLS Outpatient LENA HOLLOWAY [facility] CARD FREQUENT PVC'S [id number] 05/03/2018 11:58:00 05/04/2018 13:35:00 DIS Outpatient DEWAYNE SERRANO MD [facility] 4TH MORBID OBESITY [id number] 04/25/2018 09:34:00 04/25/2018 10:10:00 DIS Outpatient DEWAYNE SERRANO MD [facility] PREOP MORBID OBESITY [id number] 03/01/2018 08:58:00 03/01/2018 23:59:59 CLS Outpatient DEWAYNE SERRANO MD [facility] RAD REFLUX [id number] 06/16/2016 08:11:00 06/16/2016 08:25:00 DIS Outpatient NILTON MYLES APRN [facility] SLEEP SNORING,ARRHYTHMIAS, INSOMNIA [id number] 12/22/2015 10:43:00 12/22/2015 17:25:00 DIS Outpatient WOODROW RAMÍREZ FACC, NIRMAL LAM CCDS [facility] CATH CHEST PAIN [id number] 11/27/2018 06:54:00 ACT Outpatient WOODROW RAMÍREZ FACC, NIRMAL LAM CCDS [facility] ABN STRESS TEST
[2018-11-27] MEDS ORDERED: NS IV 1000 ML 1,000 ML IV SCH ×2 (07:00→08:59)
[2018-11-27] MEDS ORDERED: METO-387 PO (07:22)
[2018-11-27] MEDS ORDERED: [UNRECOGNIZED DRUG - CODE] PO (07:22)
[2018-11-27] MEDS ORDERED: CYAN50008 PO (07:22)
[2018-11-27] MEDS ORDERED: FIBER PO (07:22)
[2018-11-27] MEDS ORDERED: [UNRECOGNIZED DRUG - CODE] PO (07:22)
[2018-11-27] MEDS ORDERED: OMEG-141 PO (07:22)
[2018-11-27 07:31] LABS: HEMOGLOBIN 12.6 G/DL (11.5-16.0); MEAN PLATELET VOLUME 9.1 FL (7.4-10.4); RED CELL DISTRIBUTION WIDTH 14.5 % (10.0-14.5); WHITE BLOOD COUNT 12.3 10^3/uL (4.3-11.0)
[2018-11-27 07:45] LABS: INR 1.1 (0.8-1.4); PROTHROMBIN TIME PATIENT 13.9 SEC (12.2-14.7)
[2018-11-27 07:53] LABS: ALANINE AMINOTRANSFERASE 17 U/L (0-55); ALBUMIN 3.6 GM/DL (3.2-4.5); ALKALINE PHOSPHATASE 54 U/L (40-136); BILIRUBIN,TOTAL 0.6 MG/DL (0.1-1.0); BUN/CREATININE RATIO 11; CALCIUM 8.9 MG/DL (8.5-10.1); CARBON DIOXIDE 21 MMOL/L (21-32); CHLORIDE 108 MMOL/L (98-107); CHOLESTEROL 137 MG/DL (< 200); GFR ESTIMATED > 60; GLUCOSE 98 MG/DL (70-105); HDL CHOLESTEROL 40 MG/DL (40-60); POTASSIUM 3.5 MMOL/L (3.6-5.0); SODIUM 139 MMOL/L (135-145); TOTAL PROTEIN 6.7 GM/DL (6.4-8.2); TRIGLYCERIDES 73 MG/DL (<150); VLDL CHOLESTEROL 15 MG/DL (5-40)
[2018-11-27] MEDS ORDERED: fentaNYL INJECTION 100 MCG/2 ML AMP ONE (08:09)
[2018-11-27] MEDS ORDERED: MIDAZOLAM 5 MG/5 ML (VERSED) VIAL ONE (08:09)
--- NOTE | 2018-11-27 08:59 | Cardiac Procedure Note-CS/ASA ---
Pre-Procedure Note Pre-Op Procedure Note H&P Reviewed The H&P was reviewed, patient examined and no changes noted. Date H&P Reviewed: Nov 27, 2018 Time H&P Reviewed: 08:35 Conscious Sedation Pre-Proced Time 08:35 ASA Score 3 For ASA 3 and 4: Consider anesthesia and medical clearance. Also, for patients with a history of failed moderate sedation consider anesthesia. Airway Lungs Heart ASA score ASA 1: a normal healthy patient ASA 2: a patient with a mild systemic disease (mid diabetes, controlled hypertension, obesity ASA 3: a patient with a severe systemic disease that limits activity (angina , COPD, prior Myocardial infarction) ASA 4: a patient with an incapacitating disease that is a constant threat to life (CHF, renal failure) ASA 5: a moribund patient not expected to survive 24 hrs. (ruptured aneurysm) ASA 6: a declared brain patient whose organs are being harvested. For emergent operations, add the letter E after the classification Mallampati Classification Grade 3 Sedation Plan Analgesia, Amnesia, Plan communicated to team members, Discussed options with patient/fam, Discussed risks with patient/fam The patient is an appropriate candidate to undergo the planned procedure, sedation, and anesthesia. The patient immediately re-assessed prior to indication. NIRMAL TROY MD FACP FAC CCDS Nov 27, 2018 08:59
[2018-11-27] MEDS ORDERED: PATIENT MAY USE OWN MEDS, ALL PO SCH (09:00)
[2018-11-27] MEDS ORDERED: ASPI-999 PO (09:03)
--- NOTE | 2018-11-27 09:03 | Discharge Inst-Post CATH ---
Discharge Inst-CATH/EP Post Cardiac Cath/EP D/C Inst Follow Up/Plan F/u with Dr Cerda in 2 weeks CARDIAC CATH DISCHARGE INSTRUCTIONS *Hold Metformin for 48 hours post heart cath. ACTIVITY * Go Home directly and rest. * Limit activity of the leg (or wrist if it was used) for 7 days including aerobics, swimming, jogging, bicycling, etc. * Restrict stair-climbing for 7 days if possible, if not, climb up with your non -cath leg, then bring together on the same step. * Avoid lifting, pushing, pulling or excessive movement of the affected extremity for 7 days. * Customary sexual activity may be resumed after 2 days-use caution not to use a position that strains or causes pain to the affected extremity. * No driving for 24 hours. * NO SMOKING. * Avoid straining for bowel movements for 7 days. * Gentle walking on level ground is allowed. * Returning to work will depend on the type of procedure and the results. Your doctor will discuss this with you. CALL YOUR DOCTOR FOR ANY OF THE FOLLOWING: *If bleeding from the puncture site occurs- Apply gentle pressure to site with clean cloth and call your doctor or EMS. * If a knot or lump forms under the skin, increases in size, or causes pain. * If bruising appears to be worsening or moving further down your leg instead of disappearing. * Temperature above 101 F. CARE OF YOUR GROIN INCISION; * Bruising or purple discoloration of the skin near the puncture site is common. * You may shower only, no bathtub bathing for 5 days. Be careful to avoid slipping as your leg may feel stiff. * If a closure device was used on your femoral artery, please see the attached guide regarding care of the device and your leg. * Leave the dressing on, until removed by office staff. CARE OF YOUR WRIST INCISION; * Bruising or purple discoloration of the skin near the puncture site is common. * You may shower. * DO NOT submerge wrist. * Leave dressing on, until removed by office staff.. NIRMAL CERDA MD [facility] CCDS Nov 27, 2018 09:03
--- NOTE | 2018-11-27 09:04 | Discharge Inst-Cardiology ---
Discharge Inst-Cardiac Discharge Medications New Medications: Aspirin (Aspirin) 81 Mg Tab.chew 81 MG PO DAILY for 90 Days, #90 TAB 3 Refills Continued Medications: Calcium Carbonate (Calcium) 500 Mg Tablet 500 MG PO DAILY, TAB Cholecalciferol (Vitamin D3) (Vitamin D3) 2,000 Unit Tablet 2000 UNIT PO DAILY, TAB Cyanocobalamin (Vitamin B-12) (Vitamin B12) 5,000 Mcg Tab.rapdis 5000 MCG PO DAILY, TAB Docusate Sodium (Stool Softener) 100 Mg Tablet 100 MG PO PRN, TAB [Fiber] () 5 GM PO DAILY Folic Acid/Multivit-Minerals ([facility] Daily Gummies) 200 Mcg Tab.chew 200 MCG PO DAILY, TAB Guaifenesin (Mucus Relief) 600 Mg Tab.er.12h 600 MG PO BID, TAB Levothyroxine Sodium (Levothyroxine Sodium) 88 Mcg Tablet 88 MCG PO DAILY, TAB Metoprolol Succinate (Metoprolol Succinate) 25 Mg Tab.er.24h 25 MG PO DAILY, TAB Gratiot-3/Dha/Epa/Fish Oil ([place] 3 500 Softgel) 1 Each Capsule 1 EACH PO DAILY, CAP Pantoprazole Sodium (Pantoprazole Sodium) 40 Mg Tablet.dr 40 MG PO DAILY PRN for HEARTBURN, TAB Vitamin B Complex (Vitamin B Complex) 1 Each Capsule 1 EACH PO DAILY, NIRMAL HERNANDEZ MD FACP FAC CCDS Nov 27, 2018 09:04
[2018-11-27] MEDS ORDERED: ASPIRIN 81 MG CHEW (CHILDREN'S ASA) PO ONE (09:15)
--- NOTE | 2018-11-27 09:21 | CARDIAC CATHETERIZATION ---
DATE OF SERVICE: 11/27/2018 CARDIAC CATHETERIZATION REPORT The patient is a 47-year-old lady, who has palpitations with the frequent premature ventricular contractions with a high premature ventricular contraction burden (23%). She had a myocardial perfusion imaging study done, which was indicative of a small to moderate amount of anteroseptal ischemia. Cardiac catheterization was carried out after having obtained an informed consent. PROCEDURE: She was brought to the cardiac catheterization laboratory in a fasting state. The right groin was prepared and draped in the usual sterile fashion. Lidocaine 1% local anesthesia. Modified Seldinger technique was used to advance a 5-Moldovan sheath in the right femoral artery, 5-Moldovan JL4 catheter for left coronary angiography, 5-Moldovan JR4 catheter for right coronary angiography, 5-Moldovan pigtail catheter was used for left heart catheterization and left ventricular angiography. Pigtail catheter was pulled back to the aortic arch and the aortic arch angiography was performed. Aortic arch angiography was performed because the wire went several times into the left subclavian artery with one of the catheters at one time. We wanted to be sure that there have been no complications. At the end of the procedure following removal of all catheters, angiography of the right femoral artery was carried out through the sheath and Mynx was used to achieve hemostasis. HEMODYNAMICS: Left ventricular end-diastolic pressure following coronary angiography was 13 mmHg. There was no significant pressure gradient on pullback across the aortic valve. Ascending aortic pressure was 122/69 with a mean of 94 mmHg. LEFT VENTRICULAR ANGIOGRAPHY: Left ventricular angiography was carried out in the right anterior oblique projection. Global left ventricular systolic function normal. No regional wall motion abnormality was seen. Left ventricular ejection fraction is approximately 60%. AORTIC ARCH ANGIOGRAPHY: Aortic arch angiography did not indicate any significant thoracic aortic aneurysm or dissection. The neck arteries are seen in their proximal portions and there does not appear to be any significant disease or complications. CORONARY ANGIOGRAPHY: Left main coronary artery is free of significant disease. Left anterior descending, left circumflex and right coronary arteries are free of any angiographically significant disease. Mild right coronary spasm was seen at the tip of the right coronary catheter. CONCLUSIONS: 1. No angiographically significant coronary artery disease. 2. Normal global left ventricular systolic function with ejection fraction of 60%. 3. Mild elevation of left ventricular end-diastolic pressure. 4. No significant mitral regurgitation. 5. No evidence of thoracic aortic aneurysm or dissections. Neck arteries are normal appearing in their proximal portions. DISCUSSION AND RECOMMENDATIONS: Based on results of the study, it appears appropriate to continue a conservative approach. For her frequent premature ventricular contractions, she continues to follow with the electrophysiology service. Job ID: [id number] DocumentID: [id number] Dictated Date: 11/27/2018 08:54:43 Folding Rules Printing Machine Operator Date: 11/27/2018 09:20:54 Dictated By: NIRMAL TROY MD, MA, FACP, FACC, MTDD
== END 2018-11-27 12:15 | disposition home or self-care (01) ==
LOC: CATH 06:54 → SDC 09:17 → CATH 12:15
PROVIDERS: ATTEND Internal Medicine Cardiovascular Disease
DX: I49.3 Ventricular premature depolarization (principal); I34.0 Nonrheumatic mitral (valve) insufficiency; E03.9 Hypothyroidism, unspecified; G47.36 Sleep related hypoventilation in conditions classified elsewhere; E66.9 Obesity, unspecified; Z68.35 Body mass index [BMI] 35.0-35.9, adult; Z79.899 Other long term (current) drug therapy
CPT/HCPCS: 36221; 36415; 80053; 80061; 85027; 85610; 85730; 87081; 93458

== ENCOUNTER → 2018-12-31 | Outpatient (CLI) | payer OTHER ==
[~2018-12-31] MED LIST changes: +CYAN50008 PO; +FIBER PO; +GUAI-977 PO; +OMEG-141 PO; +[UNRECOGNIZED DRUG - CODE] PO
== END ==
LOC: CARD 08:12
PROVIDERS: ATTEND Internal Medicine Interventional Cardiology
DX: I49.3 Ventricular premature depolarization (principal)
CPT/HCPCS: 93225; 93226

== ENCOUNTER 2019-04-01 07:25 | Outpatient (RCR) | payer OTHER ==
[~2019-04-01 07:25] MED LIST changes: -CA C1TAB80 PO; +VIACTIV SOFT C1 EAC1 PO
== END 2019-06-30 | disposition home or self-care (01) ==
LOC: CARD 07:25
PROVIDERS: ATTEND Internal Medicine Interventional Cardiology
DX: I49.3 Ventricular premature depolarization (principal); I47.1 Supraventricular tachycardia
CPT/HCPCS: 93270

== ENCOUNTER → 2019-08-23 | Outpatient (CLI) | payer OTHER | LOC: CARD 09:36 | PROVIDERS: ATTEND Internal Medicine Interventional Cardiology | DX: I47.1 Supraventricular tachycardia (principal); I49.3 Ventricular premature depolarization | CPT/HCPCS: 93225; 93226 ==

== ENCOUNTER → 2019-09-19 | Outpatient (CLI) | payer OTHER ==
--- NOTE | 2019-09-19 09:03 | Diagnostic Imaging Report ---
INDICATION: Six-month follow-up right breast density. Correlation is made with outside mammogram from 03/14/2019 and prior mammogram from 03/13/2017. Unilateral right 2-D and 3-D diagnostic mammography was performed. Scattered fibroglandular densities in the right breast are noted. Area of asymmetry along the lower outer right breast is less prominent on today's study and is consistent with fibroglandular tissue. No mass is detected. No malignant appearing microcalcifications are seen. Right axilla is unremarkable. IMPRESSION: BI-RADS Category 1 No mammographic features suspicious for malignancy are identified. Patient may return to routine annual screening in 6 months. ACR BI-RADS Category 1: Negative. Result letter will be mailed to the patient. Note: At least 10% of breast cancer is not imaged by mammography. Dictated by: Dictated on workstation # [id number]
== END ==
LOC: RAD 08:11
PROVIDERS: ATTEND Nurse Practitioner Family
DX: N63.13 Unspecified lump in the right breast, lower outer quadrant (principal)

== ENCOUNTER 2019-10-14 09:00 | Day surgery (SDC) | payer OTHER ==
[~2019-10-14] VITALS: Ht 166 cm; Wt 93.0 kg
[2019-10-14] VITALS (12 sets, daily range): BP systolic 113–147; BP diastolic 63–85
[2019-10-14] MEDS ORDERED: NS IV 1000 ML 1,000 ML IV SCH ×2 (09:17→09:18)
[2019-10-14] MEDS ORDERED: LIDOCAINE 1% INJ 20 ML 20 ML VIAL ONE (09:20)
[2019-10-14] MEDS ORDERED: NS IV 1000 ML 2,000 ML ONE (09:20)
[2019-10-14] MEDS ORDERED: ISOPROTERENOL 0.2 MG/D5W 50 ML IV ONE (09:30)
[2019-10-14 09:51] LABS: HEMOGLOBIN 14.3 G/DL (11.5-16.0); MEAN PLATELET VOLUME 9.6 FL (7.4-10.4); RED CELL DISTRIBUTION WIDTH 14.3 % (10.0-14.5); WHITE BLOOD COUNT 7.5 10^3/uL (4.3-11.0)
[2019-10-14 10:03] LABS: INR 0.9 (0.8-1.4); PROTHROMBIN TIME PATIENT 12.9 SEC (12.2-14.7)
[2019-10-14 10:10] LABS: ALBUMIN 4.3 GM/DL (3.2-4.5); BILIRUBIN,TOTAL 0.5 MG/DL (0.1-1.0); CALCIUM 9.2 MG/DL (8.5-10.1); CREATININE SERUM 1.01 MG/DL (0.60-1.30); POTASSIUM 3.9 MMOL/L (3.6-5.0); TOTAL PROTEIN 7.4 GM/DL (6.4-8.2)
[2019-10-14] MEDS ORDERED: HEParin 1000 UNIT/ML (10ML VIAL) FOR BOLUS ONE ×2 (10:37→14:55)
[2019-10-14] MEDS ORDERED: NS IV 1000 ML 1,000 ML ONE ×3 (10:38→13:01)
[2019-10-14] MEDS ORDERED: METO-395 PO (10:58)
[2019-10-14] MEDS ORDERED: [UNRECOGNIZED DRUG - CODE] PO (10:58)
[2019-10-14] MEDS ORDERED: MULT1TAB69 PO (11:01)
--- NOTE | 2019-10-14 11:05 | NUR ---
SPOKE WITH PT AND CALLED [facility] IN [place] TO COMPLETE THE MED REC. PT WAS ABLE TO TELL ME HOW/WHEN SHE TAKES EACH MEDICATION. THE FOLLOWING ARE FILL DATES: 09-29-2019 METOPROLOL 25MG #30/30DS 10-05-2019 LEVOTHYROXINE #30/30DS 10-12-2019 METOPROLOL 100MG #90/90DS OTC MEDS: MTV CALCIUM VIT D FIBER WAFERS
[2019-10-14] MEDS ORDERED: HEParin DRIP 25000 UNIT/500ML 500 ML IV ONE (11:52)
[2019-10-14] MEDS ORDERED: fentaNYL INJECTION 100 MCG/2 ML AMP ONE (12:02)
[2019-10-14] MEDS ORDERED: KETAMINE HCL 100 MG/ML 5 ML VIAL ONE (12:02)
[2019-10-14] MEDS ORDERED: MIDAZOLAM 2 MG/2 ML (VERSED) VIAL ONE (12:02)
[2019-10-14] MEDS ORDERED: PROPOFOL DRIP (ICU) 100 ML IV ONE ×2 (12:03→14:20)
--- NOTE | 2019-10-14 16:36 | History & Physicial-Cardiolgy ---
HPI-Cardiology Cardiology Consultation: Date of Consultation 10/14/19 Date of Admission Attending Physician Mary Meraz MD Admitting Physician Jordi Rowell MD Consulting Physician Mary MERAZ MD HPI: Time Seen by a Provider: 10:00 Chief Complaint: Palpitations This is a 48-year-old lady with history of frequent outflow tract PVCs. I attempted a PVC ablation on 11/12/2018. However she had recurrence of a very similar type of the PVC morphology. Total PVC burden still significantly elevated. On beta alli. Repeat PVC ablation is recommended. Review of Systems-Cardiology Review of Systems Constitutional: As described under HPI; No As described under HPI, No no symptoms reported, No chills, No fever, No lightheadedness Eyes: No As described under HPI, No no symptoms reported, No blindness, No blurred vision, No contact lenses, No drainage, No decreased acuity, No foreign body sensation, No pain, No vision change Ears/Nose/Throat: No As described under HPI, No no symptoms reported, No chronic hearing loss, No ear discharge, No ear pain, No nasal drainage, No ulcerations Respiratory: No no symptoms reported; As described under HPI; No As described under HPI, No cough, No orthopnea, No shortness of breath, No SOB with excertion Cardiovascular: No no symptoms reported; As described under HPI; No As described under HPI, No chest pain, No edema, No irregular heart rate, No lightheadedness; palpitations Gastrointestinal: No no symptoms reported, No As described under HPI, No abdomen distended, No abdominal pain, No blood streaked bowels, No constipation, No diarrhea, No nausea, No vomiting, No stool coloration changes Genitourinary: No As described under HPI, No burning, No dysuria, No discharge, No frequency, No flank pain, No hematuria, No urgency : Yes : No Skin: No rash, No skin related problems, No ulcerations Psychiatric/Neurological: No anxiety, No depression, No seizure, No focal weakness, No syncope Hematologic: No bleeding abnormalities NBD-[id number]-[id number] Hx Patient Social History Alcohol Use: Denies Use Recreational Drug Use: No Smoking Status: Never a Smoker 2nd Hand Smoke Exposure: No Recent Foreign Travel: No Recent Infectious Disease Expo: No Immunizations Up To Date Tetanus Booster (TDap): More than 5yrs Date of Influenza Vaccine: Jul 30, 2019 Past Medical History PMH As described under Assessment. Family Medical History Family Medical History: She reports her father had CAD. Family History: Cardiovascular disease 19 FATHER Cataracts 19 FATHER Colon cancer 19 FATHER Deafness or hearing loss 19 FATHER Diabetes mellitus 19 FATHER Dysphasia 19 FATHER Hypercholesterolemia 19 MOTHER Hypertension 19 FATHER Kidney disease 19 FATHER Thyroid disease 19 MOTHER Visual disorder 19 FATHER 19 MOTHER Allergies and Home Medications Allergies Coded Allergies: No Known Drug Allergies (Unverified , 11/05/18) PT DENIES ANY MEDICATION ALLERGIES. Home Medications Calcium Carbonate 500 Mg Tablet, 500 MG PO DAILY, (Reported) Cholecalciferol (Vitamin D3) 2,000 Unit Tablet, 2,000 UNIT PO DAILY, (Reported) Levothyroxine Sodium 88 Mcg Tablet, 88 MCG PO DAILY, (Reported) Metoprolol Succinate 25 Mg Tab.er.24h, 25 MG PO HS, (Reported) Metoprolol Succinate 100 Mg Tab.er.24h, 100 MG PO DAILY, (Reported) Multivitamin 1 Each Tablet, 1 EACH PO DAILY, (Reported) Psyllium Husk (with Sugar) 2.5 Gm Wafer, 5 GM PO HS, (Reported) Patient Home Medication List Home Medication List Reviewed: Yes Physical Exam-Cardiology Physical Exam Vital Signs/I&O 10/14/19 09:49 Temp 37.1 Pulse 38 Resp 20 B/P (MAP) 147/73 (97) Pulse Ox 98 Capillary Refill : Constitutional: appears stated age; No apparent distress; well-developed, well- nourished HEENT: PERRL; No discharge; hearing is well preserved, oral hygience is good; No ulceration, No xanthelasmas are seen Neck: No carotid bruit; carotid pulses are 2 + bilaterally Respiratory: chest is bilaterally symmetric, lungs clear to auscultation Cardiovascular: regular rate-rhythm, S1 and S2 Gastrointestinal: soft, audible bowel sounds; No spleenomegaly Rectal: deferred Extremities: No clubbing, No cyanosis; no lower extremity edema bilateral; No s ignificant edema Neurologic/Psychiatric: no motor/sensory deficits, alert, normal mood/affect, oriented x 3, power is 5/5 both on sides Skin: normal color, warm/dry; No rash, No ulcerations Data Review Labs Laboratory Tests 10/14/19 09:45: White Blood Count 7.5, Red Blood Count 4.93, Hemoglobin 14.3, Hematocrit 43, Mean Corpuscular Volume 88, Mean Corpuscular Hemoglobin 29, Mean Corpuscular Hemoglobin Concent 33, Red Cell Distribution Width 14.3, Platelet Count 213, Mean Platelet Volume 9.6, Prothrombin Time 12.9, INR Comment 0.9, Activated Par tial Thromboplast Time 34, Sodium Level 141, Potassium Level 3.9, Chloride Level 108H, Carbon Dioxide Level 24, Anion Gap 9, Blood Urea Nitrogen 12, Creatinine 1.01, Estimat Glomerular Filtration Rate 58, BUN/Creatinine Ratio 12, Glucose Level 90, Calcium Level 9.2, Corrected Calcium 9.0, Total Bilirubin 0.5, Aspartate Amino Transf (AST/SGOT) 20, Alanine Aminotransferase (ALT/SGPT) 14, Alkaline Phosphatase 59, Total Protein 7.4, Albumin 4.3 ECG Impression ECG Initial ECG Rhythm: Normal Sinus, PVC A/P-Cardiology Assessment/Admission Diagnosis Frequent PVCs Admission Status: Observation Plan PVC ablation is recommended. Mary MERAZ MD Oct 14, 2019 4:35 pm POS
[2019-10-14] MEDS ORDERED: PATIENT MAY USE OWN MEDS, ALL PO SCH (16:45)
--- NOTE | 2019-10-14 16:49 | Electrophysiology Procedure ---
EP Procedure DATE OF SERVICE:10/14/19 REFERRING COMMERCIAL RELATIONSHIP MANAGER: Dr. Danitza Cerda CARDIAC APRON CLEANER: Marva Meraz MD, [facility], [facility]. INDICATION: Symptomatic PVCs. PREOPERATIVE DIAGNOSIS: Symptomatic PVCs. POSTOPERATIVE DIAGNOSES: PVC ablation. HISTORY: This is a 48 year old lady with frequent symptomatic PVCs. Outflow tract morphology. Previous PVC ablation attempt 11/12/2018 with recurrent PVCs. The patient is planned for comprehensive EP study and ablation. PROCEDURE PERFORMED: 1. Comprehensive EP study with induction. 2. Fluoroscopy. 3.Left atrial pacing and recording. 4. Left ventricular pacing and recording. 5. Ablation of RVOT PVCs. 6. Comprehensive 3D mapping with the carto system. 7. Intracardiac Echo/Ultrasound. COMPLICATION: None. ESTIMATED BLOOD LOSS: 10 mL. CONTRAST USED: None. FLUOROSCOPY TIME: 9.5 minutes. FLUOROSCOPY DOSE: 173 mgy. SPECIMENS: None. ANESTHESIA: Done by our anesthesia colleagues. ANTICOAGULATION: IV heparin PROCEDURE IN DETAIL: After informed consent was taken, the patient was brought to the EP lab. Anesthesia was provided by our anesthesia colleagues. The patient was draped and prepped in the usual sterile fashion. The patient presented to the EP lab in sinus rhythm. Access was gained in the right femoral vein with a 8-Northern Irish sheath and right femoral artery with a 8 Northern Irish sheath. Left access in left femoral vein was gained with 10 Northern Irish and 7-Northern Irish sheath respectively. CS catheter was placed through the left femoral vein. Intracardiac ultrasound was placed through the 10 Northern Irish left femoral vein. Irrigation and ablation catheter was advanced through the 8 Northern Irish venous sheath and then later on in the procedure through the arterial sheath for LV/LVOT mapping. CS catheter were also placed. Intracardiac ultrasound/Echo catheter was also placed. Intracardiac Echocardiogram was used to create a FAM of the RV, RVOT, LV, LVOT, LA and Aortic valve. A comprehensive EP study was done including left atrial pacing and recording which did not demonstrate a left lateral pathway. Left ventricular pacing and recording was also done. A 3D electroanatomic mapping was donewith the carto system. Clinical PVCs were recorded and high density mapping done in the RVOT region. Pace mapping was also done in the RVOT. Earliest focus was 15ms before onset of surface PVC. Pace mapping revealed 11/12, 12/12 and low 90% correlation. I therefore took out the ablation catheter and advanced in the right femoral artery and performed mapping in the LV [place], LVOT and in all 3 cusps. All points were late with poor correlation on Pace mapping. At this point in time I took the ablation catheter out of the arterial system and went back into the RVOT into the posterior lateral part of the RVOT and performed further high density mapping. Ablation was therefore performed. On ultrasound, this region was in the anterior RVOT and away from the septum. The outline of the RV, LA and aorta was created by Cartosound to make sure we are not close to any vital structure. Initial ablations resulted in ventricular ectopy and then absence of clinical PVC. However, after few minutes, the clinical PVC appeared again. We performed mapping in RVOT just adjacent to the previous ablation points. And further ablations were done. We still observed some PVCs at the end of the procedure. Some were very similar to the clinical PVCs as well. The patienttolerated the procedurewell and did not have any complication.The patientleft the lab in sinus rhythm. Total ablation time was 6 minutes 50 seconds. MEASUREMENTS/EP STUDY: AH interval 1222 ms, AH interval 60 ms, HV interval 60 ms, AR interval 103 ms, R-R interval 972 ms, QT interval 330 ms, QRS duration 52 ms, Retrograde Wenckebach at cycle length 490 ms, AV Wenckebach Cycle length 350 ms. PLAN: The patient will be observed overnight and will be discharged home tomorrow with precise followup instructions. We will start the patient on flecainide 50 mg twice a day. Marva Meraz MD, [facility] Cardiac Electrophysiology Mary MERAZ MD Oct 14, 2019 4:49 pm POS
[2019-10-14] MEDS ORDERED: PROMETHAZINE INJ 25 MG/ML (PHENERGAN) AMP IVP ONE (17:45)
[2019-10-14] MEDS ORDERED: ONDANSETRON 4 MG/2 ML (SDV) Z0FRAN IVP PRN (17:45)
[2019-10-14] MEDS ORDERED: morphine INJ 10 MG/ML 1ML (SYR OR VIAL) IVP ONE (17:45)
[2019-10-14] MEDS: NS IV 1000 ML 1,000 ML IV SCH ×2 (18:10→18:27)
[2019-10-14] MEDS: FLECAINIDE 100 MG (TAMBOCOR) TAB PO SCH (21:09)
[2019-10-15] VITALS: BP 106/66
[2019-10-15 02:00] VITALS: BP 122/75
[2019-10-15 04:00] VITALS: BP 126/67
[2019-10-15 04:11] LABS: HEMOGLOBIN 12.8 G/DL (11.5-16.0); MEAN PLATELET VOLUME 9.8 FL (7.4-10.4); RED CELL DISTRIBUTION WIDTH 14.5 % (10.0-14.5); WHITE BLOOD COUNT 8.3 10^3/uL (4.3-11.0)
[2019-10-15 04:37] LABS: BUN/CREATININE RATIO 17; CALCIUM 8.1 MG/DL (8.5-10.1); CARBON DIOXIDE 18 MMOL/L (21-32); CHLORIDE 112 MMOL/L (98-107); CREATININE SERUM 0.84 MG/DL (0.60-1.30); GFR ESTIMATED > 60; GLUCOSE 75 MG/DL (70-105); POTASSIUM 4.1 MMOL/L (3.6-5.0); SODIUM 140 MMOL/L (135-145)
[2019-10-15 06:00] VITALS: BP 120/64
[2019-10-15] MEDS: FLECAINIDE 100 MG (TAMBOCOR) TAB PO SCH (07:47)
[2019-10-15 08:00] VITALS: BP 121/50
[2019-10-15] MEDS ORDERED: FLEC100T PO (09:57)
--- NOTE | 2019-10-15 11:41 | Discharge Inst-Post CATH ---
Discharge Inst-CATH/EP Problems Reviewed?: Yes Final Diagnosis PVC Post Cardiac Cath/EP D/C Inst Follow Up/Plan Dr Meraz in 3-4 weeks <b>CARDIAC CATH/EP PROCEDURE DISCHARGE INSTRUCTIONS</b> ACTIVITY * Go Home directly and rest. * Limit activity of the leg (or wrist if it was used) for 7 days including aerobics, swimming, jogging, bicycling, etc. * Restrict stair-climbing for 7 days if possible, if not, climb up with your non-cath leg, then bring together on the same step. * Avoid lifting, pushing, pulling or excessive movement of the affected extremity for 7 days. * Customary sexual activity may be resumed after 2 days-use caution not to use a position that strains or causes pain to the affected extremity. * No driving for 24 hours. * NO SMOKING. * Avoid straining for bowel movements for 7 days. * Gentle walking on level ground is allowed. * Returning to work will depend on the type of procedure and the results. Your doctor will discuss this with you. CALL YOUR DOCTOR FOR ANY OF THE FOLLOWING: *If bleeding from the puncture site occurs- Apply gentle pressure to site with clean cloth and call your doctor or EMS. * If a knot or lump forms under the skin, increases in size, or causes pain. * If bruising appears to be worsening or moving further down your leg instead of disappearing. * Temperature above 101 F. CARE OF YOUR GROIN INCISION; * Bruising or purple discoloration of the skin near the puncture site is common. * You may shower only, no bathtub bathing for 5 days. Be careful to avoid slipping as your leg may feel stiff. * If a closure device was used on your femoral artery, please see the attached guide regarding care of the device and your leg. * Leave dressing on FOR 24 hours. CARE OF YOUR WRIST INCISION; * Bruising or purple discoloration of the skin near the puncture site is common. * You may shower. * DO NOT submerge wrist. * Leave dressing on FOR 24 hours. Mary MERAZ MD Oct 15, 2019 11:41 POS
--- NOTE | 2019-10-15 11:43 | Cardiology Discharge Summary ---
Diagnosis/Chief Complaint Date of Admission 10/14/2019 Date of Discharge 10/15/2019 Admission Diagnosis Frequent PVCs Final/Discharge Diagnosis PVC ablation Chief Complaint/HPI Chief Complaint/HPI This is a 48-year-old lady with history of frequent outflow tract PVCs. I attempted a PVC ablation on 11/12/2018. However she had recurrence of a very similar type of the PVC morphology. Total PVC burden still significantly elevated. On beta alli. Repeat PVC ablation is recommended. Discharge Summary Procedures RVOT PVC ablation. Discharge Physical Examination Normal Cardiovascular Examination Hospital Course Was the Problem List Reviewed?: Yes Unremarkable Discussion & Recommendations Discussion Discharged instruction discussed at length. Start Flecainide 50mg Bid. Rest of the medications remain the same. Follow up appt.: Dr Meraz in 3-4 weeks Dicharge Diet: Cardiac Diet Activity as Tolerated: Yes Home Medications Reviewed patient Home Medication Reconciliation performed by pharmacy medication reconciliations breeder service technician and/or nursing. Patients Allergies have been reviewed. Discharge Home Medications: Reviewed and agree with Discharge Medication list on patient's Discharge Instruction sheet Condition at discharge stable Instructions to patient/family Dr Meraz in 3-4 weeks Mary MERAZ MD Oct 15, 2019 11:43 POS
--- NOTE | 2019-10-15 16:16 | Anesthesia-General Post-Op ---
General Patient Condition Mental Status/LOC: Same as Preop Cardiovascular: Satisfactory Nausea/Vomiting: Absent Respiratory: Satisfactory Pain: Controlled Complications: Absent Post Op Complications Complications None Follow Up Care/Instructions Patient Instructions None needed. Anesthesia/Patient Condition Patient Condition Patient is already discharged to home but she was doing well, no complaints, stable vital signs, no apparent adverse anesthesia problems according to nursing staff prior to her discharge. HASEEB WYLIE DO Oct 15, 2019 16:16 POS
== END 2019-10-15 10:25 | disposition home or self-care (01) ==
LOC: CATH 09:00 → ICU 17:36 → CATH 10-15 10:25
PROVIDERS: ATTEND Internal Medicine Interventional Cardiology
DX: I49.3 Ventricular premature depolarization (principal); Z79.899 Other long term (current) drug therapy
CPT/HCPCS: 36415; 80048; 80053; 85027; 85610; 85730; 87081; 93005; 93613; 93622; 93654; 93662

== ENCOUNTER → 2019-10-28 | Outpatient (CLI) | payer OTHER ==
[~2019-10-28] MED LIST changes: +FLEC100T PO; +METO-395 PO; +MULT1TAB69 PO; +[UNRECOGNIZED DRUG - CODE] PO
== END ==
LOC: CARD 11:48
PROVIDERS: ATTEND Internal Medicine Interventional Cardiology
DX: I49.3 Ventricular premature depolarization (principal); I47.1 Supraventricular tachycardia
CPT/HCPCS: 93225; 93226

== ENCOUNTER → 2020-01-06 | Outpatient (CLI) | payer OTHER ==
[~2020-01-06] MED LIST changes: -METO-387 PO; -METO-395 PO; +MTP100TCR PO; +MTP25TSR PO
[2020-01-06 15:18] LABS: BASOPHILS % (AUTO) 0 % (0-10); EOSINOPHILS # (AUTO) 0.1 10^3/uL (0.0-0.3); EOSINOPHILS % (AUTO) 2 % (0-10); HEMATOCRIT 43 % (35-52); LYMPHOCYTES # (AUTO) 2.3 X 10^3 (1.0-4.0); LYMPHOCYTES % (AUTO) 29 % (12-44); MEAN CORPUSCULAR HEMOGLOBIN 29 PG (25-34); MEAN CORPUSCULAR HGB CONC 33 G/DL (32-36); MEAN CORPUSCULAR VOLUME 88 FL (80-99); MEAN PLATELET VOLUME 9.2 FL (7.4-10.4); MONOCYTES # (AUTO) 0.7 X 10^3 (0.0-1.0); MONOCYTES % (AUTO) 9 % (0-12); NEUTROPHILS # (AUTO) 4.8 X 10^3 (1.8-7.8); NEUTROPHILS % (AUTO) 60 % (42-75); PLATELET COUNT 215 10^3/uL (130-400); RED CELL DISTRIBUTION WIDTH 14.4 % (10.0-14.5)
[2020-01-06 15:49] LABS: ALANINE AMINOTRANSFERASE 13 U/L (0-55); ALBUMIN 3.9 GM/DL (3.2-4.5); ALKALINE PHOSPHATASE 51 U/L (40-136); BILIRUBIN,TOTAL 0.4 MG/DL (0.1-1.0); BUN/CREATININE RATIO 16; CARBON DIOXIDE 25 MMOL/L (21-32); CHLORIDE 106 MMOL/L (98-107); CREATININE SERUM 0.87 MG/DL (0.60-1.30); GFR ESTIMATED > 60; GLUCOSE 84 MG/DL (70-105); POTASSIUM 4.2 MMOL/L (3.6-5.0); SODIUM 138 MMOL/L (135-145); TOTAL PROTEIN 6.9 GM/DL (6.4-8.2)
== END ==
LOC: LAB 14:39
PROVIDERS: ATTEND Internal Medicine Cardiovascular Disease
DX: I49.3 Ventricular premature depolarization (principal)
CPT/HCPCS: 36415; 80053; 83735; 85025

== ENCOUNTER → 2020-01-09 | Outpatient (CLI) | payer OTHER | LOC: CARD 07:40 | PROVIDERS: ATTEND Internal Medicine Cardiovascular Disease | DX: I49.3 Ventricular premature depolarization (principal) | CPT/HCPCS: 93225; 93226 ==

== ENCOUNTER → 2020-05-06 | Outpatient (CLI) | payer OTHER ==
[~2020-05-06] MED LIST changes: +MULT-567 PO; -MULT1TAB69 PO
== END ==
LOC: CARD 08:20
PROVIDERS: ATTEND Internal Medicine Interventional Cardiology
DX: I47.1 Supraventricular tachycardia (principal); I49.3 Ventricular premature depolarization
CPT/HCPCS: 93225; 93226

== ENCOUNTER → 2020-07-22 | Outpatient (CLI) | payer OTHER ==
[~2020-07-22] MED LIST changes: +ASCO100024 PO; -ASCO10006 PO; -PANT40TA3 PO; +PANT40TA52 PO
[2020-07-22 15:21] LABS: BASOPHILS % (AUTO) 0 % (0-10); EOSINOPHILS # (AUTO) 0.1 10^3/uL (0.0-0.3); EOSINOPHILS % (AUTO) 1 % (0-10); HEMATOCRIT 44 % (35-52); HEMOGLOBIN 14.2 g/dL (11.5-16.0); LYMPHOCYTES # (AUTO) 2.3 10^3/uL (1.0-4.0); LYMPHOCYTES % (AUTO) 29 % (12-44); MEAN CORPUSCULAR HEMOGLOBIN 28 pg (25-34); MEAN CORPUSCULAR HGB CONC 32 g/dL (32-36); MEAN CORPUSCULAR VOLUME 88 fL (80-99); MEAN PLATELET VOLUME 8.8 fL (9.0-12.2); MONOCYTES # (AUTO) 0.6 10^3/uL (0.0-1.0); MONOCYTES % (AUTO) 8 % (0-12); NEUTROPHILS # (AUTO) 4.8 10^3/uL (1.8-7.8); NEUTROPHILS % (AUTO) 61 % (42-75); PLATELET COUNT 205 10^3/uL (130-400); WHITE BLOOD COUNT 7.8 10^3/uL (4.3-11.0)
[2020-07-22 15:54] LABS: ALBUMIN 3.9 GM/DL (3.2-4.5); BILIRUBIN,TOTAL 0.4 MG/DL (0.1-1.0); CALCIUM 8.9 MG/DL (8.5-10.1); CREATININE SERUM 0.98 MG/DL (0.60-1.30); POTASSIUM 4.5 MMOL/L (3.6-5.0); TOTAL PROTEIN 7.1 GM/DL (6.4-8.2)
[2020-07-22 16:15] LABS: FREE T4 (FREE THYROXINE) 1.09 NG/DL (0.70-1.48)
== END ==
LOC: LAB 14:57
PROVIDERS: ATTEND Family Medicine
DX: Z00.01 Encounter for general adult medical examination with abnormal findings (principal); R73.9 Hyperglycemia, unspecified; R53.83 Other fatigue; R68.89 Other general symptoms and signs
CPT/HCPCS: 36415; 80053; 80061; 83001; 83002; 83036; 84439; 84443; 85025

== ENCOUNTER → 2021-07-02 | Outpatient (CLI) | payer OTHER ==
[~2021-07-02] MED LIST changes: -CYAN50008 PO; +CYAN50009 PO; +[UNRECOGNIZED DRUG - CODE] PO; -[UNRECOGNIZED DRUG - CODE] PO
[2021-07-02 15:01] LABS: BASOPHILS % (AUTO) 0 % (0-10); EOSINOPHILS # (AUTO) 0.3 10^3/uL (0.0-0.3); EOSINOPHILS % (AUTO) 5 % (0-10); HEMATOCRIT 46 % (35-52); HEMOGLOBIN 14.6 g/dL (11.5-16.0); LYMPHOCYTES % (AUTO) 29 % (12-44); MEAN CORPUSCULAR HEMOGLOBIN 28 pg (25-34); MEAN CORPUSCULAR HGB CONC 32 g/dL (32-36); MEAN CORPUSCULAR VOLUME 89 fL (80-99); MEAN PLATELET VOLUME 8.8 fL (9.0-12.2); MONOCYTES # (AUTO) 0.6 10^3/uL (0.0-1.0); MONOCYTES % (AUTO) 9 % (0-12); NEUTROPHILS % (AUTO) 57 % (42-75); PLATELET COUNT 233 10^3/uL (130-400)
[2021-07-02 15:18] LABS: BILIRUBIN,TOTAL 0.4 MG/DL (0.1-1.0); CALCIUM 9.8 MG/DL (8.5-10.1); CREATININE SERUM 0.97 MG/DL (0.60-1.30); POTASSIUM 4.3 MMOL/L (3.6-5.0); TOTAL PROTEIN 7.3 GM/DL (6.4-8.2)
[2021-07-02 15:39] LABS: FREE T4 (FREE THYROXINE) 1.26 NG/DL (0.70-1.48)
== END ==
LOC: LAB 14:40
PROVIDERS: ATTEND Family Medicine
DX: Z00.00 Encounter for general adult medical examination without abnormal findings (principal); Z13.1 Encounter for screening for diabetes mellitus; R53.83 Other fatigue
CPT/HCPCS: 36415; 80053; 80061; 83036; 84439; 84443; 85025

== ENCOUNTER → 2021-07-19 | Outpatient (CLI) | payer OTHER ==
--- NOTE | 2021-07-20 10:07 | Diagnostic Imaging Report ---
INDICATION: Screening. TECHNIQUE: The current study was also evaluated with a Computer Aided Detection (CAD) system. 3D Tomographic imaging was also performed. COMPARISON: 09/19/2019, 03/14/2019, and 03/13/2017. FINDINGS: There are scattered fibroglandular densities. There are a few benign type calcifications. There is no dominant mass, spiculated lesion, or suspicious calcification identified. The skin, nipples, and axillae are unremarkable. IMPRESSION: Benign findings. ACR BI-RADS Category 2: Benign findings. Result letter will be mailed to the patient. Note: At least 10% of breast cancer is not imaged by mammography. Dictated by: Dictated on workstation # [id number]
== END ==
LOC: RAD 15:30
PROVIDERS: ATTEND Family Medicine
DX: Z12.31 Encounter for screening mammogram for malignant neoplasm of breast (principal)
CPT/HCPCS: 77063; 77067